=== PATIENT | male | born 1980 | race Caucasian/White ===

== ENCOUNTER 2016-12-02 18:51 | Emergency (ER) | payer MEDICAID, SELFPAY | END 2016-12-02 20:56 | disposition left against medical advice (07) | LOC: M ED 18:51 | DX: Z53.29 Procedure and treatment not carried out because of patient's decision for other reasons (principal) ==

== ENCOUNTER 2016-12-03 11:01 | Emergency (ER) | payer MEDICAID, SELFPAY ==
--- NOTE | 2016-12-03 15:56 | EDDOCDS ---
Nurse's Notes [facility] Name: Kirill Lester Age: 36 yrs Sex: Male : 1980 Arrival Date: 12/03/2016 Time: 11:01 Bed [facility] Private MD: Diagnosis: Other stimulant abuse with intoxication delirium Presentation: 12/03 11:22 Presenting complaint: law enforcement states they have been dealing with pt all night ttb -- pt using meth and causing disturbances. No SI/HI. Mental Health Triage Level: Level 2: The patient was brought to the ED for evaluation because of a legal pickup order. Adult Sepsis Screening: Patient has new or worsening altered mentation (1 point). Patient's respiratory rate is less than 22. Systolic blood pressure is greater than 100. Patient has a qSOFA score of 1- Negative Sepsis Screen. Suicide/Homicide risk assessment- The patient reports that he/she has a recent or current history of substance abuse. Status: Patient is not a environmental services lead or dependent. Transition of care: patient was not received from another setting of care. 11:22 Acuity: ASHWIN Level 3 ttb 11:22 Method Of Arrival: Police Car ttb Triage Assessment: 11:27 General: Appears in no apparent distress, comfortable, well nourished, Behavior is ttb anxious, cooperative, pleasant, restless. Pain: Denies pain. HIV screening NA for this visit Offered previously. Neurological: Level of Consciousness is awake, alert, Oriented to person, place, time, Moves all extremities. Gait is steady, Speech is normal, Facial symmetry appears normal. Cardiovascular: Heart tones S1 S2 present Chest pain is denied. Respiratory: Airway is patent Respiratory effort is even, unlabored, Breath sounds are clear bilaterally. Denies cough, shortness of breath. GI: Bowel sounds present X 4 quads. Reports has not eaten/drank in approx 2 days Denies nausea, vomiting, pain. Derm: Skin is normal. Injury Description: No known injury. Historical: - Allergies: PENICILLINS; dymtap; - Home Meds: 1. none - PMHx: substance abuse; - PSHx: none; - Social history: Smoking status: Patient uses tobacco products, heavy tobacco smoker. Patient uses street drugs, methamphetamine , Patient/guardian denies using alcohol, No barriers to communication noted, The patient speaks fluent Syriac, Speaks appropriately for age. - Family history: Not pertinent. - : The pt / caregiver states he / she is not on anticoagulants. Home medication list is obtained from the patient. - Exposure Risk Screening:: None identified. Screenin:29 Screening information is obtained from the patient. Fall risk: No risks identified. ttb Assistance ADL's: requires no assistance with activities of daily living. Abuse/DV Screen: The patient / caregiver reports he/she is: not in a situation that causes fear, pain or injury. Nutritional screening: No deficits noted. Advance Directives: Currently, there is no health care proxy. home support is adequate. Assessment: 11:29 General: see triage assessment. Pt brushed teeth, states he is not hungry but has not ttb eaten in 2 days. States he has been using meth for approx 20 years and this binge is not out of his norm. 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 . 12:15 Reassessment: Patient appears in no apparent distress at this time. pt sleeping. NAD ttb noted. Resps easy at 18. Will monitor.. 12:15 Neurological: asleep. Respiratory: Airway is patent Respiratory effort is even, ttb unlabored. 13:15 Reassessment: Patient appears in no apparent distress at this time. pt sleeping. Resps ttb easy at 18. Security monitoring. . 14:15 Reassessment: Patient appears in no apparent distress at this time. pt continues to ttb sleep on stretcher. Resps easy at 18. Security monitoring.. 15:15 Adult Sepsis Screening: The patient does not have new or worsening altered mentation. ttb Patient's respiratory rate is less than 22. Systolic blood pressure is greater than 100. Patient has a qSOFA score of 0- Negative Sepsis Screen. General: Appears in no apparent distress, comfortable, Behavior is appropriate for age, cooperative, pleasant, quiet. Pain: Denies pain. Neurological: Level of Consciousness is awake, alert. Cardiovascular: Chest pain is denied. Respiratory: Airway is patent Respiratory effort is even, unlabored, Denies cough, shortness of breath. GI: Reports tolerance of food, tolerance of fluids, Denies nausea, vomiting, pain. 15:15 Derm: Skin is normal. ttb 15:40 Reassessment: Patient appears in no apparent distress at this time. Patient denies pain ttb at this time. Patient states feeling better. Patient states symptoms have improved. pt states he is ready for DC after speaking with SW. Sister to give him ride home. Denies need for referral list stating he has tried rehab before.... states he will attempt to refrain from drug use. . 15:40 General: Appears in no apparent distress, comfortable, Behavior is appropriate for age, ttb cooperative, pleasant. Pain: Denies pain. Neurological: Level of Consciousness is awake, alert. Cardiovascular: Chest pain is denied. Respiratory: No deficits noted. Airway is patent Respiratory effort is even, unlabored. GI: Denies nausea, vomiting, pain. Derm: Skin is normal. Mental Health Eval: 11:44 Mental health consult is initiated at 11:44. Status: The patient is not a ca environmental services lead or dependent. [facility] Behavioral Health: The patient is not an established patient of [facility] Behavioral Health. Referral Information: Evaluation referral is generated by a police agency: [employer] on . The patient was referred for evaluation because Pt called 911 stating people were chasing him around with guns. Also told police someone had been killed and told police where to find the body. Police confirm they found no body. Police spoke with pt's family, were informed family believes pt made suicidal threat. Pt denies this to the police . Subjective: The patients chief complaint is Pt states he has not slept in 3 days due to abusing methamphetamine. Pt denies any SI or HI, states "I never said that." . Vital Signs: 11:27 BP 142 / 87; Pulse 71; Resp 20; Temp 97.4; Pulse Ox 100% on R/A; Weight 84.82 kg; ttb Height 5 ft. 9 in. (175.26 cm); Pain 0/10; 15:18 BP 119 / 64; Pulse 74; Resp 18; Temp 96.4; Pulse Ox 100% on R/A; Pain 0/10; ttb 11:27 Body Mass Index 27.61 (84.82 kg, 175.26 cm) ttb Vitals: 11:27 Log In time N/A- police car arrival. ttb ED Course: 11:04 Patient visited by Nicole Roberson. 5 11:04 Patient moved to [facility] 11:12 Patient moved to [facility] pjf 11:26 Triage Initiated ttb 11:29 The patient / caregiver is instructed regarding the plan of care and ED course. Patient ttb has correct armband on for positive identification. Placed in gown. Placed in psych safe attire. Security observing. in [facility] with observation. Property inventory done, secured in belongings bag- secure belongings bag, Placed U locker . 11:31 Patient visited by Scarlett Du RN. ttb 11:34 Pt greeted and oriented to ED. Patient advised of names of staff involved in care, pjf location of call lindsay, wait times and NPO status. Accompanied by Law Enforcement, wpd (9.41), Bed in low position. Call light in reach. Side rails up X 1. Door closed. Noise minimized. Visitors limited. Report received from rn - gregg. triage level #2, ams, cooperative \\T\\ this time. Psych Safety Check: Location: Psych Room. 11:41 Patient visited by Greyson Redmond Security Aide. pjf 11:45 Patient visited by Greyson Redmond Security Aide. pjf 11:58 Patient visited by Greyson Redmond Security Aide. pjf 12:18 Patient visited by Greyson Redmond Security Aide. pjf 12:25 Patient visited by Scarlett Du RN. ttb 12:30 Giselle Boyce FNP is PHCP. le 12:49 Patient visited by Giselle Boyce FNP. le 12:49 Patient visited by Giselle Boyce FNP. le 12:49 Patient visited by Greyson Redmond Security Aide. pjf 13:15 Psych Safety Check: Location: Psych Room. Visual Assessment: Cooperative. pjf 13:22 Patient visited by Greyson Redmond Security Aide. pjf 13:42 Patient visited by Greyson Redmond Security Aidkaylen. pjf 13:56 Patient visited by Greyson Redmond Security Aide. pjf 14:11 Patient visited by Greyson Redmond Security Aidkaylen. pjf 14:36 Patient visited by Greyson Redmond Security Aide. pjf 14:41 Patient visited by Scarlett Du RN. ttb 14:46 Patient visited by Greyson Redmond Security Aide. pjf 15:01 Patient visited by Greyson Redmond Security Aide. pjf 15:19 Patient visited by Scarlett Du RN. ttb 15:31 Patient visited by Greyson Redmond Security Aide. pjf 15:38 [facility] is Referral Physician. le 15:40 No IV's were initiated during this patient's visit. No procedures done that require ttb assistance. Order Results: There are currently no results for this order. Outcome: 15:38 Discharge ordered by Provider. le 15:40 Discharge Assessment: Patient awake, alert and oriented x 3. No cognitive and/or ttb functional deficits noted. Patient verbalized understanding of disposition instructions. Patient awake and alert. patient administered narcotics - no. The following High Risk Discharge criteria are identified: None. Discharged to home ambulatory, with family. Condition: good Condition: stable Condition: improved. Discharge instructions given to patient, Instructed on discharge instructions, follow up and referral plans. medication usage, safe sex practices, safety practices, refrain from drug use, f/u with rehabilitation center Demonstrated understanding of instructions, medications, refraining from drug use Pt was receptive of discharge instructions/ teaching. No special radiology studies were completed. Property :Personal belongings accompany Pt. 15:55 Patient left the ED. ttb Signatures: Drea Quigley PSA PSA Greyson Whatley Security Aide SecurpjGiselle Sanchez, RAILCAR FOREMAN RAILCAR FOREMAN Scarlett Araiza RN RN ttb Nicole Roberson jp5 MTDD
--- NOTE | 2016-12-03 15:56 | EDDOCDS ---
Physician Documentation [facility] Name: Kirill Lester Age: 36 yrs Sex: Male : 1980 Arrival Date: 12/03/2016 Time: 11:01 Bed [facility] Private MD: Disposition: 12/03/16 15:38 Discharged to Home/Self Care. Impression: Other stimulant abuse with intoxication delirium. - Condition is Stable. - Discharge Instructions: Chemical Dependency, Stimulant Use Disorder-Amphetamines. - Medication Reconciliation, Local Pharmacy Hours form. - Follow up: [facility]; When: Call to arrange an appointment; Reason: Recheck today's complaints, To establish care. - Problem is an acute exacerbation. - Symptoms have improved. - Notes: You need to refrain from using illegal substances. Return to the ED for any other concerns Historical: - Allergies: PENICILLINS; dymtap; - Home Meds: 1. none - PMHx: substance abuse; - PSHx: none; - Social history: Smoking status: Patient uses tobacco products, heavy tobacco smoker. Patient uses street drugs, methamphetamine , Patient/guardian denies using alcohol, No barriers to communication noted, The patient speaks fluent Bengali, Speaks appropriately for age. - Family history: Not pertinent. - : The pt / caregiver states he / she is not on anticoagulants. Home medication list is obtained from the patient. - Exposure Risk Screening:: None identified. Vital Signs: 12/03 11:27 BP 142 / 87; Pulse 71; Resp 20; Temp 97.4; Pulse Ox 100% on R/A; Weight 84.82 kg / 187 ttb lbs; Height 5 ft. 9 in. (175.26 cm); Pain 0/10; 15:18 BP 119 / 64; Pulse 74; Resp 18; Temp 96.4; Pulse Ox 100% on R/A; Pain 0/10; ttb 11:27 Body Mass Index 27.61 (84.82 kg, 175.26 cm) ttb MDM: 12:25 REGULAR DIET PLASTIC PIRES+DIET ordered. EDMS Signatures: Dispatcher [employer] EDMS Giselle Boyce, Scarlett Mcmahon, CHAYO RN ttb MTDD
--- NOTE | 2016-12-05 16:56 | EDDOCDS ---
Physician Documentation [facility] Name: Kirill Lester Age: 36 yrs Sex: Male : 1980 Arrival Date: 12/03/2016 Time: 11:01 Bed [facility] Private MD: Disposition: 12/03/16 15:38 Discharged to Home/Self Care. Impression: Other stimulant abuse with intoxication delirium. - Condition is Stable. - Discharge Instructions: Chemical Dependency, Stimulant Use Disorder-Amphetamines. - Medication Reconciliation, Local Pharmacy Hours form. - Follow up: [facility]; When: Call to arrange an appointment; Reason: Recheck today's complaints, To establish care. - Problem is an acute exacerbation. - Symptoms have improved. - Notes: You need to refrain from using illegal substances. Return to the ED for any other concerns Historical: - Allergies: PENICILLINS; dymtap; - Home Meds: 1. none - PMHx: substance abuse; - PSHx: none; - Social history: Smoking status: Patient uses tobacco products, heavy tobacco smoker. Patient uses street drugs, methamphetamine , Patient/guardian denies using alcohol, No barriers to communication noted, The patient speaks fluent Luxembourgish, Speaks appropriately for age. - Family history: Not pertinent. - : The pt / caregiver states he / she is not on anticoagulants. Home medication list is obtained from the patient. - Exposure Risk Screening:: None identified. Vital Signs: 12/03 11:27 BP 142 / 87; Pulse 71; Resp 20; Temp 97.4; Pulse Ox 100% on R/A; Weight 84.82 kg / 187 ttb lbs; Height 5 ft. 9 in. (175.26 cm); Pain 0/10; 15:18 BP 119 / 64; Pulse 74; Resp 18; Temp 96.4; Pulse Ox 100% on R/A; Pain 0/10; ttb 11:27 Body Mass Index 27.61 (84.82 kg, 175.26 cm) ttb MDM: 12:25 REGULAR DIET PLASTIC PIRES+DIET ordered. EDMS 15:59 [facility] Payment Agreement was scanned into [employer] and attached to record. jp5 15:59 Financial registration complete. jp5 22:34 T-Sheet-- Draft Copy was scanned into [employer] and attached to record. klr Signatures: Dispatcher [employer] Giselle Keating, SETTLEMENT CLERK SETTLEMENT CLERK Scarlett Araiza, RN RN Nicole Yanez jp5 Brittanie Matthew The chart was reviewed and I authenticate all verbal orders and agree with the evaluation and treatment provided.Attachments: 15:59 [facility] Payment Agreement jp5 22:34 T-Sheet-- Draft Copy klr Chart Complete MTDD
--- NOTE | 2016-12-05 16:56 | EDDOCDS ---
Physician Documentation [facility] Name: Kirill Lester Age: 36 yrs Sex: Male : 1980 Arrival Date: 12/03/2016 Time: 11:01 Bed [facility] Private MD: Disposition: 12/03/16 15:38 Discharged to Home/Self Care. Impression: Other stimulant abuse with intoxication delirium. - Condition is Stable. - Discharge Instructions: Chemical Dependency, Stimulant Use Disorder-Amphetamines. - Medication Reconciliation, Local Pharmacy Hours form. - Follow up: [facility]; When: Call to arrange an appointment; Reason: Recheck today's complaints, To establish care. - Problem is an acute exacerbation. - Symptoms have improved. - Notes: You need to refrain from using illegal substances. Return to the ED for any other concerns Historical: - Allergies: PENICILLINS; dymtap; - Home Meds: 1. none - PMHx: substance abuse; - PSHx: none; - Social history: Smoking status: Patient uses tobacco products, heavy tobacco smoker. Patient uses street drugs, methamphetamine , Patient/guardian denies using alcohol, No barriers to communication noted, The patient speaks fluent Amharic, Speaks appropriately for age. - Family history: Not pertinent. - : The pt / caregiver states he / she is not on anticoagulants. Home medication list is obtained from the patient. - Exposure Risk Screening:: None identified. Vital Signs: 12/03 11:27 BP 142 / 87; Pulse 71; Resp 20; Temp 97.4; Pulse Ox 100% on R/A; Weight 84.82 kg / 187 ttb lbs; Height 5 ft. 9 in. (175.26 cm); Pain 0/10; 15:18 BP 119 / 64; Pulse 74; Resp 18; Temp 96.4; Pulse Ox 100% on R/A; Pain 0/10; ttb 11:27 Body Mass Index 27.61 (84.82 kg, 175.26 cm) ttb MDM: 12:25 REGULAR DIET PLASTIC PIRES+DIET ordered. EDMS 15:59 [facility] Payment Agreement was scanned into [employer] and attached to record. jp5 15:59 Financial registration complete. jp5 22:34 T-Sheet-- Draft Copy was scanned into [employer] and attached to record. klr Signatures: Dispatcher [employer] Giselle Keating, INSTRUMENT ADJUSTER INSTRUMENT ADJUSTER Scarlett Araiza, RN RN Nicole Yanez jp5 Brittanie Matthew The chart was reviewed and I authenticate all verbal orders and agree with the evaluation and treatment provided.Attachments: 15:59 [facility] Payment Agreement jp5 22:34 T-Sheet-- Draft Copy klr Chart Complete MTDD
--- NOTE | 2016-12-05 16:56 | EDDOCDS ---
Nurse's Notes [facility] Name: Kirill Lester Age: 36 yrs Sex: Male : 1980 Arrival Date: 12/03/2016 Time: 11:01 Bed [facility] Private MD: Diagnosis: Other stimulant abuse with intoxication delirium Presentation: 12/03 11:22 Presenting complaint: law enforcement states they have been dealing with pt all night ttb -- pt using meth and causing disturbances. No SI/HI. Mental Health Triage Level: Level 2: The patient was brought to the ED for evaluation because of a legal pickup order. Adult Sepsis Screening: Patient has new or worsening altered mentation (1 point). Patient's respiratory rate is less than 22. Systolic blood pressure is greater than 100. Patient has a qSOFA score of 1- Negative Sepsis Screen. Suicide/Homicide risk assessment- The patient reports that he/she has a recent or current history of substance abuse. Status: Patient is not a customer sales service manager or dependent. Transition of care: patient was not received from another setting of care. 11:22 Acuity: ASHWIN Level 3 ttb 11:22 Method Of Arrival: Police Car ttb Triage Assessment: 11:27 General: Appears in no apparent distress, comfortable, well nourished, Behavior is ttb anxious, cooperative, pleasant, restless. Pain: Denies pain. HIV screening NA for this visit Offered previously. Neurological: Level of Consciousness is awake, alert, Oriented to person, place, time, Moves all extremities. Gait is steady, Speech is normal, Facial symmetry appears normal. Cardiovascular: Heart tones S1 S2 present Chest pain is denied. Respiratory: Airway is patent Respiratory effort is even, unlabored, Breath sounds are clear bilaterally. Denies cough, shortness of breath. GI: Bowel sounds present X 4 quads. Reports has not eaten/drank in approx 2 days Denies nausea, vomiting, pain. Derm: Skin is normal. Injury Description: No known injury. Historical: - Allergies: PENICILLINS; dymtap; - Home Meds: 1. none - PMHx: substance abuse; - PSHx: none; - Social history: Smoking status: Patient uses tobacco products, heavy tobacco smoker. Patient uses street drugs, methamphetamine , Patient/guardian denies using alcohol, No barriers to communication noted, The patient speaks fluent Setswana, Speaks appropriately for age. - Family history: Not pertinent. - : The pt / caregiver states he / she is not on anticoagulants. Home medication list is obtained from the patient. - Exposure Risk Screening:: None identified. Screenin:29 Screening information is obtained from the patient. Fall risk: No risks identified. ttb Assistance ADL's: requires no assistance with activities of daily living. Abuse/DV Screen: The patient / caregiver reports he/she is: not in a situation that causes fear, pain or injury. Nutritional screening: No deficits noted. Advance Directives: Currently, there is no health care proxy. home support is adequate. Assessment: 11:29 General: see triage assessment. Pt brushed teeth, states he is not hungry but has not ttb eaten in 2 days. States he has been using meth for approx 20 years and this binge is not out of his norm. 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 . 12:15 Reassessment: Patient appears in no apparent distress at this time. pt sleeping. NAD ttb noted. Resps easy at 18. Will monitor.. 12:15 Neurological: asleep. Respiratory: Airway is patent Respiratory effort is even, ttb unlabored. 13:15 Reassessment: Patient appears in no apparent distress at this time. pt sleeping. Resps ttb easy at 18. Security monitoring. . 14:15 Reassessment: Patient appears in no apparent distress at this time. pt continues to ttb sleep on stretcher. Resps easy at 18. Security monitoring.. 15:15 Adult Sepsis Screening: The patient does not have new or worsening altered mentation. ttb Patient's respiratory rate is less than 22. Systolic blood pressure is greater than 100. Patient has a qSOFA score of 0- Negative Sepsis Screen. General: Appears in no apparent distress, comfortable, Behavior is appropriate for age, cooperative, pleasant, quiet. Pain: Denies pain. Neurological: Level of Consciousness is awake, alert. Cardiovascular: Chest pain is denied. Respiratory: Airway is patent Respiratory effort is even, unlabored, Denies cough, shortness of breath. GI: Reports tolerance of food, tolerance of fluids, Denies nausea, vomiting, pain. 15:15 Derm: Skin is normal. ttb 15:40 Reassessment: Patient appears in no apparent distress at this time. Patient denies pain ttb at this time. Patient states feeling better. Patient states symptoms have improved. pt states he is ready for DC after speaking with SW. Sister to give him ride home. Denies need for referral list stating he has tried rehab before.... states he will attempt to refrain from drug use. . 15:40 General: Appears in no apparent distress, comfortable, Behavior is appropriate for age, ttb cooperative, pleasant. Pain: Denies pain. Neurological: Level of Consciousness is awake, alert. Cardiovascular: Chest pain is denied. Respiratory: No deficits noted. Airway is patent Respiratory effort is even, unlabored. GI: Denies nausea, vomiting, pain. Derm: Skin is normal. Mental Health Eval: 11:44 Mental health consult is initiated at 11:44. Status: The patient is not a ar customer sales service manager or dependent. [facility] Behavioral Health: The patient is not an established patient of [facility] Behavioral Health. Referral Information: Evaluation referral is generated by a police agency: [employer] on . The patient was referred for evaluation because Pt called 911 stating people were chasing him around with guns. Also told police someone had been killed and told police where to find the body. Police confirm they found no body. Police spoke with pt's family, were informed family believes pt made suicidal threat. Pt denies this to the police . Subjective: The patients chief complaint is Pt states he has not slept in 3 days due to abusing methamphetamine. Pt denies any SI or HI, states "I never said that." . 15:50 Subjective: Delusions are denied. Patient's mood is appropriate. Hallucinations are ca denied. Pt has a significant hx of methamphetamine abuse and readily acknowledges this. At present time pt feels he does not require rehab. Denies SI or HI. Denies paranoia, continues to say there is a person who does not like him and wants to hurt him and so pt is avoiding him. 16:06 Mental Health history: abusing methamphetamine. Mental Health Admissions: None. Current ca Outpatient Mental Health Services: None. Current living environment is Family / Home Support: Living with sister. 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 Patient presents to Emergency Department with the following symptoms within the past 2 weeks: anxiety, drug abuse. Substance abuse: Patient uses methamphetamines. Mental status exam: Patients appearance is appropriate, malodorous Patient's behavior is cooperative, Speech is normal. Affect is appropriate. Mood is appropriate. Hallucinations are denied. Appetite is normal. Memory is fair. Energy level is normal. Content of thought is normal. Thought process is intact. Cognitive level is oriented to person, place, time and situation Patient's insight is fair. Judgement is fair. Rapport with interviewer is good. Suicidal Ideation is denied. Homicidal ideation is denied. Disposition: Medically cleared for disposition by Giselle Boyce [facility] Psychiatric Consult is deferred per ED physician, Dr Giselle Boyce . DSM-V Differential Diagnosis: Stimulant Use Disorder, Patient uses amphetamines. Narrative: Pt discharged to home with sister. Referred to E clinic for f/u as pt does not have a PCP. Pt declines referrals for drug tx. Pt continues to CFS, is calm and pleasant upon discharge. Vital Signs: 11:27 BP 142 / 87; Pulse 71; Resp 20; Temp 97.4; Pulse Ox 100% on R/A; Weight 84.82 kg; ttb Height 5 ft. 9 in. (175.26 cm); Pain 0/10; 15:18 BP 119 / 64; Pulse 74; Resp 18; Temp 96.4; Pulse Ox 100% on R/A; Pain 0/10; ttb 11:27 Body Mass Index 27.61 (84.82 kg, 175.26 cm) ttb Vitals: 11:27 Log In time N/A- police car arrival. ttb ED Course: 11:04 Patient visited by Nicole Roberson. 5 11:04 Patient moved to [place] [id number] 11:12 Patient moved to [address] 11:26 Triage Initiated ttb 11:29 The patient / caregiver is instructed regarding the plan of care and ED course. Patient ttb has correct armband on for positive identification. Placed in gown. Placed in psych safe attire. Security observing. in [facility] with observation. Property inventory done, secured in belongings bag- secure belongings bag, Placed [facility] locker . 11:31 Patient visited by Scarlett Du RN. ttb 11:34 Pt greeted and oriented to ED. Patient advised of names of staff involved in care, [facility] location of call lindsay, wait times and NPO status. Accompanied by Law Enforcement, wpd (9.41), Bed in low position. Call light in reach. Side rails up X 1. Door closed. Noise minimized. Visitors limited. Report received from rn - gregg. triage level #2, ams, cooperative \\T\\ this time. Psych Safety Check: Location: Psych Room. 11:41 Patient visited by Greyson Redmond Security Aide. pjf 11:45 Patient visited by Greyson Redmond Security Aide. pjf 11:58 Patient visited by Greyson Redmond Security Aide. pjf 12:18 Patient visited by Greyson Redmond Security Aide. pjf 12:25 Patient visited by Scarlett Du RN. ttb 12:30 [facility] le 12:49 Patient visited by Giselle Boyce FNP. le 12:49 Patient visited by Giselle Boyce FNP. le 12:49 Patient visited by Greyson Redmond Security Aide. pjf 13:15 Psych Safety Check: Location: Psych Room. Visual Assessment: Cooperative. pjf 13:22 Patient visited by Greyson Redmond Security Aide. pjf 13:42 Patient visited by Greyson Redmond Security Aide. pjf 13:56 Patient visited by Greyson Redmond Security Aide. pjf 14:11 Patient visited by Greyson Redmond Security Aide. pjf 14:36 Patient visited by Greyson Redmond Security Aide. pjf 14:41 Patient visited by Scarlett Du RN. ttb 14:46 Patient visited by Greyson Redmond Security Aide. pjf 15:01 Patient visited by Greyson Redmond Security Aide. pjf 15:19 Patient visited by Scarlett Du RN. ttb 15:31 Patient visited by Greyson Redmond Security Aide. pjf 15:38 [facility] is Referral Physician. le 15:40 No IV's were initiated during this patient's visit. No procedures done that require ttb assistance. 15:58 Patient name changed from Kirill\\S\\\\S\\Lester\\S\\ to Kirill\\S\\Krunal\\S\\Lester. EDMS 15:59 [facility] Payment Agreement was scanned into [employer] and attached to record. jp5 22:34 T-Sheet-- Draft Copy was scanned into [employer] and attached to record. colton Order Results: There are currently no results for this order. Outcome: 15:38 Discharge ordered by Provider. le 15:40 Discharge Assessment: Patient awake, alert and oriented x 3. No cognitive and/or ttb functional deficits noted. Patient verbalized understanding of disposition instructions. Patient awake and alert. patient administered narcotics - no. The following High Risk Discharge criteria are identified: None. Discharged to home ambulatory, with family. Condition: good Condition: stable Condition: improved. Discharge instructions given to patient, Instructed on discharge instructions, follow up and referral plans. medication usage, safe sex practices, safety practices, refrain from drug use, f/u with rehabilitation center Demonstrated understanding of instructions, medications, refraining from drug use Pt was receptive of discharge instructions/ teaching. No special radiology studies were completed. Property :Personal belongings accompany Pt. 15:55 Patient left the ED. ttb Signatures: Dispatcher [employer] EDMT Drea Quigley, PSA PSA Greyson Whatley, Security Aide Giselle Spain, RESCUE INSTRUCTOR RESCUE INSTRUCTOR Scarlett Araiza, RN RN ttb Nicole Roberson Kathie klr Chart Complete RAFA
== END 2016-12-03 15:55 | disposition home or self-care (01) ==
LOC: M ED 11:01
DX: F60.0 Paranoid personality disorder (principal); F15.10 Other stimulant abuse, uncomplicated; F17.210 Nicotine dependence, cigarettes, uncomplicated; Z88.0 Allergy status to penicillin; Z88.8 Allergy status to other drugs, medicaments and biological substances

== ENCOUNTER 2017-07-18 12:50 | Emergency (ER) | payer MEDICAID, SELFPAY ==
[~2017-07-18] VITALS: Ht 177.8 cm; Wt 94.1 kg
--- NOTE | 2017-07-18 13:48 | REP ---
RIGHT FOOT, FOUR VIEWS: HISTORY: Foreign body. There is no acute fracture or dislocation. The joint spaces are normal in appearance. There is no radiopaque foreign body. IMPRESSION: There is no acute fracture or dislocation. Signed by John Laboy MD 07/18/2017 01:54 P
[2017-07-18] MEDS ORDERED: CIPR-249 PO (14:03)
[2017-07-18] MEDS ORDERED: KEFL500C17 PO (14:03)
[2017-07-18] MEDS ORDERED: CIPROFLOXACIN 500 MG TAB PO ONE (14:15)
[2017-07-18] MEDS ORDERED: CEPHALEXIN 500 MG CAP PO ONE (14:15)
[2017-07-18 14:18] VITALS: BP 121/73
== END 2017-07-18 14:19 | disposition home or self-care (01) ==
LOC: M ED 12:50
DX: L02.611 Cutaneous abscess of right foot (principal)

== ENCOUNTER 2019-01-25 18:33 | Emergency (ER) | payer MEDICAID, SELFPAY ==
[~2019-01-25] VITALS: Ht 177.8 cm; Wt 93.2 kg
[~2019-01-25 18:33] MED LIST: CIPR-249 PO; KEFL500C17 PO
[2019-01-25] MEDS ORDERED: PROPARACAINE 0.5% OPHTH SOL 15ML OU ONE (19:15)
[2019-01-25] MEDS ORDERED: FLUORESCEIN OPHTH 1 MG STRIP OU ONE (19:15)
[2019-01-25] MEDS ORDERED: MORPHINE 4 MG/ML 1ML VIAL/SYRINGE (J2270) IV ONE (19:15)
[2019-01-25] MEDS ORDERED: ADACEL/BOOSTRIX VACCINE (DIPHTH/PERTUSS/ACELL/TETANUS)0.5ML SYR (90715) IM ONE (19:15)
[2019-01-25] MEDS ORDERED: BACITRACIN OINT 30GM TOP ONE (19:30)
[2019-01-25] MEDS ORDERED: IBUPROFEN 600 MG TAB PO ONE (19:45)
[2019-01-25] MEDS ORDERED: ACETAMINOPHEN 325 MG TAB PO ONE (19:45)
[2019-01-25 21:37] VITALS: BP 141/78
== END 2019-01-25 21:52 | disposition short-term general hospital (02) ==
LOC: M ED 18:33
DX: T26.10XA Burn of cornea and conjunctival sac, unspecified eye, initial encounter (principal); X08.8XXA Exposure to other specified smoke, fire and flames, initial encounter; Y92.410 Unspecified street and highway as the place of occurrence of the external cause; F17.200 Nicotine dependence, unspecified, uncomplicated

== ENCOUNTER 2019-02-02 17:57 | Emergency (ER) | payer SELFPAY ==
[~2019-02-02] VITALS: Ht 177.8 cm; Wt 93.2 kg
[2019-02-02] MEDS ORDERED: TETRACAINE 0.5% OPHTH SOLN 4ML OS ONE (19:15)
[2019-02-02 19:21] VITALS: BP 110/71
== END 2019-02-02 19:27 | disposition home or self-care (01) ==
LOC: M ED 17:57
DX: T15.92XA Foreign body on external eye, part unspecified, left eye, initial encounter (principal); X58.XXXA Exposure to other specified factors, initial encounter; Y92.89 Other specified places as the place of occurrence of the external cause; F17.210 Nicotine dependence, cigarettes, uncomplicated

== ENCOUNTER 2019-09-13 18:44 | Emergency (ER) | payer SELFPAY ==
[~2019-09-13] VITALS: Ht 175.3 cm; Wt 88.5 kg
[2019-09-13 19:30] LABS: BASO % 0.4 % (0.0-1.0); EOS # 0.2 10^3/uL (0.0-0.5); EOS % 4.1 % (0.0-3.0); HEMATOCRIT 41.9 % (42.0-52.0); HEMOGLOBIN 14.2 g/dl (13.5-17.5); LYMPH # 1.4 10^3/uL (1.5-5.0); LYMPH % 25.1 % (24.0-44.0); MEAN CORPUSCULAR HEMOGLOBIN 30.7 pg (27.0-33.0); MEAN CORPUSCULAR HGB CONC 33.9 g/dl (32.0-36.5); MEAN CORPUSCULAR VOLUME 90.5 fl (80.0-96.0); MONO # 0.4 10^3/uL (0.0-0.8); MONO % 7.3 % (0.0-5.0); NEUTROPHILS # 3.4 10^3/uL (1.5-8.5); NEUTROPHILS % 62.9 % (36.0-66.0); PLATELET COUNT, AUTOMATED 195 10^3/uL (150-450); RED BLOOD COUNT 4.63 10^6/uL (4.30-6.10); WHITE BLOOD COUNT 5.4 10^3/uL (4.0-10.0)
[2019-09-13] MEDS ORDERED: KETOROLAC 30 MG/ML VIAL (J1885) IV ONE (19:30)
[2019-09-13] MEDS ORDERED: NS 1,000 ML IV ONE (19:30)
[2019-09-13 20:05] LABS: ALBUMIN 3.7 GM/DL (3.2-5.2); ALT/SGPT 29 U/L (12-78); BILIRUBIN,DIRECT < 0.1 MG/DL (0.0-0.2); BILIRUBIN,TOTAL 0.3 MG/DL (0.2-1.0); LIPASE 100 U/L (73-393); TOTAL PROTEIN 6.9 GM/DL (6.4-8.2)
--- NOTE | 2019-09-13 21:10 | REPVR ---
PROCEDURE INFORMATION: Exam: CT Abdomen And Pelvis Without Contrast Exam date and time: 09/13/2019 7:39 PM Clinical history: 39 years old, male; Abdominal pain; Flank; Left; Additional info: Left flank pain radiating to left groin/testicle TECHNIQUE: Imaging protocol: Computed tomography of the abdomen and pelvis without contrast. Radiation optimization: All CT scans at this facility use at least one of these dose optimization techniques: automated exposure control; mA and/or kV adjustment per patient size (includes targeted exams where dose is matched to clinical indication); or iterative reconstruction. COMPARISON: No relevant prior studies available. FINDINGS: Liver: Normal. No mass. Gallbladder and bile ducts: Normal. No calcified stones. No ductal dilation. Pancreas: Normal. No ductal dilation. Spleen: Normal. No splenomegaly. Adrenals: Normal. No mass. Kidneys and ureters: Normal. No hydronephrosis. Stomach and bowel: Unremarkable. No obstruction. No mucosal thickening. Appendix: No evidence of appendicitis. Intraperitoneal space: Unremarkable. No free air. No significant fluid collection. Vasculature: Unremarkable. No abdominal aortic aneurysm. Lymph nodes: Unremarkable. No enlarged lymph nodes. Bladder: Unremarkable as visualized. Reproductive: Unremarkable as visualized. Bones/joints: Unremarkable. No acute fracture. Soft tissues: Unremarkable. IMPRESSION: No acute findings. Electronically signed by: Neto Bains On 09/13/2019 21:10:13 PM
[2019-09-13 21:24] VITALS: BP 122/71
[2019-09-13] MEDS ORDERED: CYCLOBENZAPRINE 10 MG TAB PO ONE (21:30)
--- NOTE | 2019-09-13 22:24 | REPVR ---
PROCEDURE INFORMATION: Exam: CT Lumbar Spine Without Contrast Exam date and time: 09/13/2019 10:08 PM Clinical history: 39 years old, male; Low back pain; Additional info: Back pain radiatind down L leg TECHNIQUE: Imaging protocol: Computed tomography images of the lumbar spine without contrast. Radiation optimization: All CT scans at this facility use at least one of these dose optimization techniques: automated exposure control; mA and/or kV adjustment per patient size (includes targeted exams where dose is matched to clinical indication); or iterative reconstruction. COMPARISON: No relevant prior studies available. FINDINGS: Vertebrae: No acute fracture. Normal alignment. Discs/Spinal canal/Neural foramina: No spinal stenosis. No neural foraminal narrowing. Soft tissues: Unremarkable. IMPRESSION: No acute findings. Unremarkable lumbar spine CT. Electronically signed by: Neto Bains On 09/13/2019 22:24:15 PM
== END 2019-09-13 22:42 | disposition home or self-care (01) ==
LOC: M ED 18:44
DX: S29.012A Strain of muscle and tendon of back wall of thorax, initial encounter (principal); X58.XXXA Exposure to other specified factors, initial encounter; Y92.89 Other specified places as the place of occurrence of the external cause; Z88.0 Allergy status to penicillin; Z87.891 Personal history of nicotine dependence
CPT/HCPCS: 72131; 74176; 80047; 80076; 81001; 83690; 85025; 87086; 96374; 99284; J1885

== ENCOUNTER 2020-07-31 22:23 | Emergency (ER) | payer MEDICAID, SELFPAY ==
[~2020-07-31] VITALS: Ht 177.8 cm; Wt 95.5 kg
[2020-07-31 23:22] LABS: HEMATOCRIT 41.5 % (42.0-52.0); MEAN CORPUSCULAR HEMOGLOBIN 29.9 pg (27.0-33.0); MEAN CORPUSCULAR HGB CONC 33.7 g/dl (32.0-36.5); MEAN CORPUSCULAR VOLUME 88.7 fl (80.0-96.0); PLATELET COUNT, AUTOMATED 210 10^3/uL (150-450); RED BLOOD COUNT 4.68 10^6/uL (4.30-6.10); WHITE BLOOD COUNT 6.2 10^3/uL (4.0-10.0)
[2020-08-01 00:04] LABS: ACETAMINOPHEN LEVEL < 2.0 UG/ML (10.0-30.0); ALBUMIN 3.9 GM/DL (3.2-5.2); ALT/SGPT 33 U/L (12-78); AMPHETAMINES LEVEL URINE POSITIVE (NEGATIVE); BARBITURATES URINE NEGATIVE (NEGATIVE); BENZODIAZEPINES URINE NEGATIVE (NEGATIVE); BILIRUBIN,DIRECT 0.1 MG/DL (0.0-0.2); BILIRUBIN,TOTAL 0.4 MG/DL (0.2-1.0); BLOOD UREA NITROGEN 21 MG/DL (7-18); CALCIUM LEVEL 9.3 MG/DL (8.5-10.1); CANNABINOIDS URINE NEGATIVE (NEGATIVE); CARBON DIOXIDE LEVEL 32 MEQ/L (21-32); CHLORIDE LEVEL 105 MEQ/L (98-107); COCAINE METABOLITE URINE NEGATIVE (NEGATIVE); CREATININE FOR GFR 1.03 MG/DL (0.70-1.30); ETHYL ALCOHOL (ETHANOL) < 0.003 % (0.000-0.010); GLOMERULAR FILTRATION RATE > 60.0 (>60); GLUCOSE, FASTING 73 MG/DL (70-100); METHADONE URINE NEGATIVE (NEGATIVE); OPIATES URINE NEGATIVE (NEGATIVE); PHENCYCLIDINE URINE NEGATIVE (NEGATIVE); POTASSIUM SERUM 4.8 MEQ/L (3.5-5.1); SALICYLATE LEVEL < 1.7 MG/DL (5.0-30.0); SODIUM LEVEL 139 MEQ/L (136-145); TOTAL PROTEIN 7.3 GM/DL (6.4-8.2)
[2020-08-01] MEDS ORDERED: LORazepam 2 MG TAB PO STA (01:40)
[2020-08-01 08:44] VITALS: BP 132/82
--- NOTE | 2020-08-04 21:39 | ECGEPIP ---
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
== END 2020-08-01 08:47 | disposition short-term general hospital (02) ==
LOC: M ED 22:23
DX: R45.850 Homicidal ideations (principal); F15.229 Other stimulant dependence with intoxication, unspecified; F17.210 Nicotine dependence, cigarettes, uncomplicated; Z11.59 Encounter for screening for other viral diseases; Z88.0 Allergy status to penicillin
CPT/HCPCS: 36415; 80048; 80076; 80307; 81001; 84443; 85027; 93005; 99285; G0480; U0002

== ENCOUNTER → 2021-03-15 | Outpatient (REF) | payer OTHER | LOC: M LAB REF 11:18 | PROVIDERS: ATTEND Surgery | DX: U07.1 COVID-19 (principal) ==

== ENCOUNTER 2021-12-13 09:42 | Inpatient (IN) | payer OTHER ==
[~2021-12-13] VITALS: Ht 177.8 cm; Wt 88.6 kg
[2021-12-13] MEDS ORDERED: RISP-8 PO (09:58)
[2021-12-13 10:47] LABS: HEMATOCRIT 46.9 % (42.0-52.0); HEMOGLOBIN 15.6 g/dl (13.5-17.5); MEAN CORPUSCULAR HEMOGLOBIN 28.7 pg (27.0-33.0); MEAN CORPUSCULAR HGB CONC 33.3 g/dl (32.0-36.5); MEAN CORPUSCULAR VOLUME 86.2 fl (80.0-96.0); PLATELET COUNT, AUTOMATED 207 10^3/uL (150-450); RED BLOOD COUNT 5.44 10^6/uL (4.30-6.10); WHITE BLOOD COUNT 4.8 10^3/uL (4.0-10.0)
[2021-12-13] MEDS ORDERED: MULT-4 PO (11:06)
[2021-12-13] MEDS ORDERED: HOME MED LIST COMPLETE! XX SCH (11:10)
[2021-12-13 11:23] LABS: ACETAMINOPHEN LEVEL < 2.0 UG/ML (10.0-30.0); ALT/SGPT 30 U/L (12-78); BILIRUBIN,DIRECT 0.2 MG/DL (0.0-0.2); BILIRUBIN,TOTAL 0.6 MG/DL (0.2-1.0); BLOOD UREA NITROGEN 31 MG/DL (7-18); CALCIUM LEVEL 9.4 MG/DL (8.5-10.1); CARBON DIOXIDE LEVEL 29 MEQ/L (21-32); CHLORIDE LEVEL 109 MEQ/L (98-107); CREATININE FOR GFR 0.93 MG/DL (0.70-1.30); ETHYL ALCOHOL (ETHANOL) < 0.003 % (0.000-0.010); GLOMERULAR FILTRATION RATE > 60.0 (>60); GLUCOSE, FASTING 79 MG/DL (70-100); POTASSIUM SERUM 4.9 MEQ/L (3.5-5.1); SALICYLATE LEVEL < 1.7 MG/DL (5.0-30.0); SODIUM LEVEL 142 MEQ/L (136-145); TOTAL PROTEIN 7.4 GM/DL (6.4-8.2)
[2021-12-13 13:43] LABS: AMPHETAMINES LEVEL URINE POSITIVE (NEGATIVE); BARBITURATES URINE NEGATIVE (NEGATIVE); BENZODIAZEPINES URINE NEGATIVE (NEGATIVE); CANNABINOIDS URINE POSITIVE (NEGATIVE); COCAINE METABOLITE URINE NEGATIVE (NEGATIVE); METHADONE URINE NEGATIVE (NEGATIVE); OPIATES URINE NEGATIVE (NEGATIVE); PHENCYCLIDINE URINE NEGATIVE (NEGATIVE)
[2021-12-13] MEDS ORDERED: IBUPROFEN 400MG TAB PO PRN (15:00)
[2021-12-13] MEDS ORDERED: MAALOX 30 ML SUSP *UDC PO PRN (15:00)
[2021-12-13] MEDS ORDERED: MOM 30ML SUSPENSION UDC PO PRN (15:00)
[2021-12-13] MEDS: NICOTINE 21MG/24HR 1 EA TRANSDERMAL TD SCH (18:07)
[2021-12-13 19:05] VITALS: BP 163/88
[2021-12-13] MEDS: risperiDONE 1 MG TAB PO SCH (20:50)
[2021-12-13] MEDS: traZODone 50 MG TAB PO PRN (20:50)
[2021-12-14 06:26] VITALS: BP 122/75
[2021-12-14] MEDS: NICOTINE 21MG/24HR 1 EA TRANSDERMAL TD SCH (09:00)
[2021-12-14] MEDS: risperiDONE 1 MG TAB PO SCH (09:15)
[2021-12-14 17:38] VITALS: BP 108/71
[2021-12-14] MEDS: OLANZapine 5 MG TAB PO SCH (20:44)
[2021-12-14] MEDS: traZODone 50 MG TAB PO PRN (20:44)
[2021-12-15 06:38] VITALS: BP 138/55
[2021-12-15] MEDS: NICOTINE 21MG/24HR 1 EA TRANSDERMAL TD SCH (09:00)
[2021-12-15] MEDS ORDERED: NICO21PAT TD (11:25)
[2021-12-15] MEDS ORDERED: OLAN1TAB16 PO (11:25)
[2021-12-15] MEDS ORDERED: TRAZ-252 PO (11:25)
[2021-12-15 18:30] VITALS: BP 128/60
[2021-12-15] MEDS: traZODone 50 MG TAB PO PRN (20:48)
[2021-12-15] MEDS: OLANZapine 5 MG TAB PO SCH (20:48)
[2021-12-16 06:25] VITALS: BP 117/58
[2021-12-16 08:00] VITALS: BP 117/58
[2021-12-16] MEDS: NICOTINE 21MG/24HR 1 EA TRANSDERMAL TD SCH (09:00)
== END 2021-12-16 11:06 | disposition home or self-care (01) | DRG 750 ==
LOC: M ED 09:42 → M ED INP 14:58 → M PSY 16:00
PROVIDERS: ADMIT Psychiatry & Neurology Psychiatry; ATTEND Psychiatry & Neurology Psychiatry
DX: F25.0 Schizoaffective disorder, bipolar type (principal); F17.200 Nicotine dependence, unspecified, uncomplicated; F11.90 Opioid use, unspecified, uncomplicated; Z88.0 Allergy status to penicillin

== ENCOUNTER 2022-07-20 10:14 | Inpatient (IN) | payer OTHER ==
[~2022-07-20] VITALS: Ht 177.8 cm; Wt 97.1 kg
[~2022-07-20 10:14] MED LIST changes: +MULT-4 PO; +NICO21PAT TD; +OLAN1TAB16 PO; +RISP-8 PO; +TRAZ-252 PO
[2022-07-20] MEDS ORDERED: NS 1,000 ML IV ONE ×4 (10:20→14:00)
[2022-07-20] MEDS ORDERED: diphenhydrAMINE 50MG/ML VIAL (J1200) IM ONE (10:25)
[2022-07-20] MEDS ORDERED: HALOPERIDOL 5MG/ML VIAL (J1630 PER 1) IM ONE (10:25)
[2022-07-20] MEDS ORDERED: MIDAZOLAM INJ 2MG/2ML VIAL (J2250 PER 1MG) IM ONE (10:25)
[2022-07-20] MEDS ORDERED: MIDAZOLAM INJ 2MG/2ML VIAL (J2250 PER 1MG) As Ordered ONE (10:26)
[2022-07-20] MEDS ORDERED: diphenhydrAMINE 50MG/ML VIAL (J1200) As Ordered ONE (10:26)
[2022-07-20] MEDS ORDERED: HALOPERIDOL 5MG/ML VIAL (J1630 PER 1) As Ordered ONE (10:26)
[2022-07-20 11:05] LABS: BASO % 0.3 % (0.0-1.0); EOS # 0.2 10^3/uL (0.0-0.5); EOS % 3.6 % (0.0-3.0); HEMATOCRIT 40.6 % (42.0-52.0); HEMOGLOBIN 13.7 g/dl (13.5-17.5); LYMPH # 1.6 10^3/uL (1.5-5.0); LYMPH % 26.7 % (24.0-44.0); MEAN CORPUSCULAR HEMOGLOBIN 28.7 pg (27.0-33.0); MEAN CORPUSCULAR HGB CONC 33.7 g/dl (32.0-36.5); MEAN CORPUSCULAR VOLUME 84.9 fl (80.0-96.0); MONO # 0.6 10^3/uL (0.0-0.8); MONO % 9.8 % (2.0-8.0); NEUTROPHILS # 3.6 10^3/uL (1.5-8.5); NEUTROPHILS % 59.3 % (36.0-66.0); PLATELET COUNT, AUTOMATED 212 10^3/uL (150-450); RED BLOOD COUNT 4.78 10^6/uL (4.30-6.10); WHITE BLOOD COUNT 6.1 10^3/uL (4.0-10.0)
[2022-07-20 11:39] LABS: RSV AMPLIFICATION NEGATIVE (NEGATIVE)
[2022-07-20 11:52] LABS: ACETAMINOPHEN LEVEL < 2.0 UG/ML (10.0-30.0); ALBUMIN 3.6 GM/DL (3.2-5.2); ALT/SGPT 28 U/L (12-78); BILIRUBIN,DIRECT 0.2 MG/DL (0.0-0.2); BILIRUBIN,TOTAL 0.6 MG/DL (0.2-1.0); BLOOD UREA NITROGEN 23 MG/DL (7-18); CALCIUM LEVEL 8.8 MG/DL (8.5-10.1); CARBON DIOXIDE LEVEL 25 MEQ/L (21-32); CHLORIDE LEVEL 107 MEQ/L (98-107); CREATININE FOR GFR 0.94 MG/DL (0.70-1.30); ETHYL ALCOHOL (ETHANOL) < 0.003 % (0.000-0.010); GLOMERULAR FILTRATION RATE > 60.0 (>60); GLUCOSE, FASTING 129 MG/DL (70-100); SALICYLATE LEVEL < 1.7 MG/DL (5.0-30.0); SODIUM LEVEL 139 MEQ/L (136-145); TOTAL PROTEIN 6.6 GM/DL (6.4-8.2)
[2022-07-20 15:09] LABS: AMPHETAMINES LEVEL URINE POSITIVE (NEGATIVE); BARBITURATES URINE NEGATIVE (NEGATIVE); BENZODIAZEPINES URINE POSITIVE (NEGATIVE); CANNABINOIDS URINE NEGATIVE (NEGATIVE); COCAINE METABOLITE URINE NEGATIVE (NEGATIVE); METHADONE URINE NEGATIVE (NEGATIVE); OPIATES URINE NEGATIVE (NEGATIVE); PHENCYCLIDINE URINE NEGATIVE (NEGATIVE)
[2022-07-20] MEDS ORDERED: HOME MED LIST COMPLETE! XX SCH (19:55)
[2022-07-23] MEDS ORDERED: OLANZapine ORAL DISINTEGRATING TAB 5MG PO ONE (10:55)
[2022-07-24] MEDS: traZODone 50 MG TAB PO SCH ×3 (00:08→20:36)
[2022-07-24] MEDS: OLANZapine 5 MG TAB PO SCH ×3 (00:08→20:36)
[2022-07-25] MEDS: NICOTINE 21MG/24HR 1 EA TRANSDERMAL TD SCH (09:00)
[2022-07-25] MEDS: THIAMINE 100 MG TAB PO SCH ×3 (09:00→21:00)
[2022-07-25] MEDS ORDERED: LORazepam 2 MG TAB PO PRN (11:20)
[2022-07-25] MEDS ORDERED: OLANZapine ORAL DISINTEGRATING TAB 5MG PO PRN (11:20)
[2022-07-25] MEDS ORDERED: MOM 30ML SUSPENSION UDC PO PRN (11:20)
[2022-07-25] MEDS ORDERED: MAALOX 30 ML SUSP *UDC PO PRN (11:20)
[2022-07-25 16:53] VITALS: BP 123/73
[2022-07-25] MEDS: FOLIC ACID 1MG TAB PO SCH (19:00)
[2022-07-25] MEDS: MULTIVITAMINS/MINERALS THERAP 1 TAB PO SCH (19:00)
[2022-07-25 23:05] VITALS: BP 128/61
[2022-07-26 07:00] VITALS: BP 128/84
[2022-07-26 07:09] VITALS: BP 128/84
[2022-07-26] MEDS: NICOTINE 21MG/24HR 1 EA TRANSDERMAL TD SCH (09:00)
[2022-07-26] MEDS: MULTIVITAMINS/MINERALS THERAP 1 TAB PO SCH (09:38)
[2022-07-26] MEDS: THIAMINE 100 MG TAB PO SCH ×2 (09:38→20:12)
[2022-07-26] MEDS: FOLIC ACID 1MG TAB PO SCH (09:38)
[2022-07-26 19:24] VITALS: BP 133/79
[2022-07-26] MEDS: traZODone 50 MG TAB PO PRN (20:12)
[2022-07-26] MEDS: OLANZapine 10 MG TAB PO SCH (20:12)
[2022-07-26 21:29] VITALS: BP 130/80
[2022-07-26] MEDS: IBUPROFEN 400MG TAB PO PRN (22:39)
[2022-07-27] MEDS: NICOTINE 21MG/24HR 1 EA TRANSDERMAL TD SCH (09:00)
[2022-07-27] MEDS: FOLIC ACID 1MG TAB PO SCH (09:56)
[2022-07-27] MEDS: IBUPROFEN 400MG TAB PO PRN ×2 (09:56→18:10)
[2022-07-27] MEDS: THIAMINE 100 MG TAB PO SCH ×2 (09:56→21:10)
[2022-07-27] MEDS: MULTIVITAMINS/MINERALS THERAP 1 TAB PO SCH (09:56)
[2022-07-27 17:58] VITALS: BP 120/62
[2022-07-27] MEDS: OLANZapine 10 MG TAB PO SCH (21:10)
[2022-07-27] MEDS: traZODone 50 MG TAB PO PRN (21:10)
[2022-07-28 06:23] VITALS: BP 127/72
[2022-07-28] MEDS: MULTIVITAMINS/MINERALS THERAP 1 TAB PO SCH (07:46)
[2022-07-28] MEDS: IBUPROFEN 400MG TAB PO PRN (07:47)
[2022-07-28] MEDS: THIAMINE 100 MG TAB PO SCH (07:47)
[2022-07-28] MEDS: NICOTINE 21MG/24HR 1 EA TRANSDERMAL TD SCH (07:47)
[2022-07-28] MEDS: FOLIC ACID 1MG TAB PO SCH (07:47)
[2022-07-28] MEDS ORDERED: TRAZ-252 PO (10:32)
[2022-07-28] MEDS ORDERED: OLAN1TAB20 PO (10:32)
[2022-07-28] MEDS ORDERED: FOLI1TAB11 PO (10:32)
[2022-07-28] MEDS ORDERED: VITMTA PO (10:32)
== END 2022-07-28 12:22 | disposition home or self-care (01) | DRG 750 ==
LOC: M ED 10:14 → UNDOADMIN 10:15 → M ED INP 10:15 → M PSY 07-25 16:52
PROVIDERS: ADMIT Psychiatry & Neurology Psychiatry; ATTEND Psychiatry & Neurology Psychiatry
DX: F25.8 Other schizoaffective disorders (principal); F15.90 Other stimulant use, unspecified, uncomplicated; R44.0 Auditory hallucinations; Z88.0 Allergy status to penicillin; F17.210 Nicotine dependence, cigarettes, uncomplicated

== ENCOUNTER 2022-09-02 16:11 | Emergency (ER) | payer OTHER ==
[~2022-09-02 16:11] MED LIST changes: +FOLI1TAB11 PO; +OLAN1TAB20 PO; +VITMTA PO
[2022-09-02 17:10] LABS: HEMATOCRIT 43.6 % (42.0-52.0); HEMOGLOBIN 14.8 g/dl (13.5-17.5); MEAN CORPUSCULAR HEMOGLOBIN 29.8 pg (27.0-33.0); MEAN CORPUSCULAR HGB CONC 33.9 g/dl (32.0-36.5); MEAN CORPUSCULAR VOLUME 87.7 fl (80.0-96.0); PLATELET COUNT, AUTOMATED 209 10^3/uL (150-450); RED BLOOD COUNT 4.97 10^6/uL (4.30-6.10); WHITE BLOOD COUNT 7.8 10^3/uL (4.0-10.0)
[2022-09-02 17:49] LABS: ACETAMINOPHEN LEVEL < 2.0 UG/ML (10.0-30.0); ALBUMIN 3.8 GM/DL (3.2-5.2); ALT/SGPT 53 U/L (12-78); BILIRUBIN,DIRECT 0.1 MG/DL (0.0-0.2); BILIRUBIN,TOTAL 0.5 MG/DL (0.2-1.0); BLOOD UREA NITROGEN 26 MG/DL (7-18); CALCIUM LEVEL 9.3 MG/DL (8.5-10.1); CARBON DIOXIDE LEVEL 29 MEQ/L (21-32); CHLORIDE LEVEL 104 MEQ/L (98-107); CREATININE FOR GFR 1.02 MG/DL (0.70-1.30); ETHYL ALCOHOL (ETHANOL) < 0.003 % (0.000-0.010); GLOMERULAR FILTRATION RATE > 60.0 (>60); GLUCOSE, FASTING 118 MG/DL (70-100); POTASSIUM SERUM 4.2 MEQ/L (3.5-5.1); SALICYLATE LEVEL 2.3 MG/DL (5.0-30.0); SODIUM LEVEL 137 MEQ/L (136-145); TOTAL PROTEIN 7.3 GM/DL (6.4-8.2)
[2022-09-02] MEDS ORDERED: TRAZ-186 PO (20:47)
[2022-09-02] MEDS ORDERED: OLAN1TAB20 PO (20:47)
[2022-09-02] MEDS ORDERED: FOLI1TAB11 PO (20:47)
[2022-09-02] MEDS ORDERED: THERTAB52 PO (20:48)
[2022-09-02] MEDS ORDERED: HOME MED LIST COMPLETE! XX SCH (20:50)
[2022-09-02 23:25] LABS: AMPHETAMINES LEVEL URINE POSITIVE (NEGATIVE); BARBITURATES URINE NEGATIVE (NEGATIVE); BENZODIAZEPINES URINE NEGATIVE (NEGATIVE); CANNABINOIDS URINE POSITIVE (NEGATIVE); COCAINE METABOLITE URINE NEGATIVE (NEGATIVE); METHADONE URINE NEGATIVE (NEGATIVE); OPIATES URINE NEGATIVE (NEGATIVE); PHENCYCLIDINE URINE NEGATIVE (NEGATIVE)
[2022-09-02] MEDS ORDERED: OLANZapine 10 MG TAB PO ONE (23:40)
[2022-09-02] MEDS ORDERED: traZODone 50 MG TAB PO ONE (23:40)
[2022-09-03 20:40] VITALS: BP 142/83
== END 2022-09-04 11:58 | disposition home or self-care (01) ==
LOC: M ED 16:11
DX: F25.9 Schizoaffective disorder, unspecified (principal); F17.200 Nicotine dependence, unspecified, uncomplicated; Z88.0 Allergy status to penicillin; Z79.83 Long term (current) use of bisphosphonates; Z79.899 Other long term (current) drug therapy

== ENCOUNTER 2022-10-24 01:23 | Inpatient (IN) | payer OTHER ==
[~2022-10-24] VITALS: Ht 177.8 cm; Wt 97.1 kg
[~2022-10-24 01:23] MED LIST changes: +THERTAB52 PO; +TRAZ-186 PO
[2022-10-24 03:37] LABS: HEMATOCRIT 43.9 % (42.0-52.0); HEMOGLOBIN 14.5 g/dl (13.5-17.5); MEAN CORPUSCULAR HEMOGLOBIN 29.1 pg (27.0-33.0); PLATELET COUNT, AUTOMATED 228 10^3/uL (150-450); RED BLOOD COUNT 4.99 10^6/uL (4.30-6.10); WHITE BLOOD COUNT 6.3 10^3/uL (4.0-10.0)
[2022-10-24 04:07] LABS: BARBITURATES URINE NEGATIVE (NEGATIVE); BENZODIAZEPINES URINE NEGATIVE (NEGATIVE); CANNABINOIDS URINE NEGATIVE (NEGATIVE); COCAINE METABOLITE URINE NEGATIVE (NEGATIVE); METHADONE URINE NEGATIVE (NEGATIVE); OPIATES URINE NEGATIVE (NEGATIVE); PHENCYCLIDINE URINE NEGATIVE (NEGATIVE)
[2022-10-24 04:09] LABS: AMPHETAMINES LEVEL URINE POSITIVE (NEGATIVE)
[2022-10-24 04:10] LABS: ETHYL ALCOHOL (ETHANOL) 0.004 % (0.000-0.010)
[2022-10-24 04:11] LABS: ACETAMINOPHEN LEVEL < 2.0 UG/ML (10.0-20.0); ALBUMIN 3.8 G/DL (3.2-5.2); ALKALINE PHOSPHATASE 68 U/L (46-116); ALT/SGPT 30 U/L (7.0-40); AST/SGOT 18 U/L (<34); BILIRUBIN,DIRECT < 0.1 MG/DL (<0.4); BILIRUBIN,TOTAL 0.2 MG/DL (0.3-1.2); BLOOD UREA NITROGEN 26 MG/DL (9-23); CARBON DIOXIDE LEVEL 26 MMOL/L (20-31); CHLORIDE LEVEL 103 MMOL/L (98-107); GLOMERULAR FILTRATION RATE > 60.0 (>60); GLUCOSE, FASTING 117 MG/DL (60-100); POTASSIUM SERUM 4.1 MMOL/L (3.5-5.1); SALICYLATE LEVEL < 3.0 MG/DL (<30); SODIUM LEVEL 138 MMOL/L (136-145); TOTAL PROTEIN 6.9 G/DL (5.7-8.2)
[2022-10-24 04:14] LABS: THYROID STIMULATING HORMONE 2.131 uIU/ML (0.55-4.78)
[2022-10-24 04:25] LABS: RSV AMPLIFICATION NEGATIVE (NEGATIVE)
[2022-10-24] MEDS ORDERED: HOME MED LIST COMPLETE! XX SCH (06:00)
[2022-10-24] MEDS ORDERED: hydrOXYzine 50 MG TAB PO PRN (15:30)
[2022-10-24] MEDS ORDERED: ACETAMINOPHEN TAB 650MG DOSE (2X325MG) PO PRN (15:30)
[2022-10-24] MEDS ORDERED: MOM 30ML SUSPENSION UDC PO PRN (15:30)
[2022-10-24] MEDS ORDERED: MAALOX 30 ML SUSP *UDC PO PRN (15:30)
[2022-10-24 17:26] VITALS: BP 115/69
[2022-10-25 06:34] VITALS: BP 106/58
[2022-10-25] MEDS: PALIPERIDONE 6 MG ER TAB (INVEGA) PO SCH (14:18)
[2022-10-25] MEDS: traZODone 50 MG TAB PO PRN (20:19)
[2022-10-26 06:00] VITALS: BP 100/56
[2022-10-26] MEDS: PALIPERIDONE 6 MG ER TAB (INVEGA) PO SCH ×2 (09:00→16:31)
[2022-10-26] MEDS ORDERED: PALI1TAB3 PO (18:06)
[2022-10-26 19:12] VITALS: BP 115/55
[2022-10-26] MEDS: OLANZapine ORAL DISINTEGRATING TAB 5MG PO ONE ×2 (23:43→23:56)
[2022-10-26] MEDS: traZODone 50 MG TAB PO PRN (23:56)
[2022-10-27 06:00] VITALS: BP 104/75
[2022-10-27] MEDS: PALIPERIDONE 6 MG ER TAB (INVEGA) PO SCH (09:24)
== END 2022-10-27 10:05 | disposition home or self-care (01) | DRG 750 ==
LOC: M ED 01:23 → M ED INP 15:27 → M PSY 16:55
PROVIDERS: ADMIT Student in an Organized Health Care Education/Training Program; ATTEND Student in an Organized Health Care Education/Training Program
DX: F25.0 Schizoaffective disorder, bipolar type (principal); F15.950 Other stimulant use, unspecified with stimulant-induced psychotic disorder with delusions; Z20.822 Contact with and (suspected) exposure to COVID-19; G40.909 Epilepsy, unspecified, not intractable, without status epilepticus; F17.200 Nicotine dependence, unspecified, uncomplicated; Z88.0 Allergy status to penicillin; Z91.14 Patient's other noncompliance with medication regimen

== ENCOUNTER 2022-11-11 15:31 | Inpatient (IN) | payer OTHER ==
[~2022-11-11] VITALS: Ht 177.8 cm; Wt 90.9 kg
[~2022-11-11 15:31] MED LIST changes: +PALI1TAB3 PO
[2022-11-11 16:48] LABS: HEMATOCRIT 39.1 % (42.0-52.0); HEMOGLOBIN 13.6 g/dl (13.5-17.5); MEAN CORPUSCULAR HEMOGLOBIN 29.2 pg (27.0-33.0); MEAN CORPUSCULAR HGB CONC 34.8 g/dl (32.0-36.5); MEAN CORPUSCULAR VOLUME 84.1 fl (80.0-96.0); PLATELET COUNT, AUTOMATED 184 10^3/uL (150-450); RED BLOOD COUNT 4.65 10^6/uL (4.30-6.10); WHITE BLOOD COUNT 3.6 10^3/uL (4.0-10.0)
[2022-11-11 17:12] LABS: ETHYL ALCOHOL (ETHANOL) 0.003 % (0.000-0.010)
[2022-11-11 17:13] LABS: ACETAMINOPHEN LEVEL < 2.0 UG/ML (10.0-20.0)
[2022-11-11 17:14] LABS: ALBUMIN 3.8 G/DL (3.2-5.2); ALKALINE PHOSPHATASE 66 U/L (46-116); ALT/SGPT 28 U/L (7.0-40); AST/SGOT 29 U/L (<34); BILIRUBIN,DIRECT 0.2 MG/DL (<0.4); BILIRUBIN,TOTAL 0.6 MG/DL (0.3-1.2); BLOOD UREA NITROGEN 19 MG/DL (9-23); CALCIUM LEVEL 8.7 MG/DL (8.5-10.1); CARBON DIOXIDE LEVEL 23 MMOL/L (20-31); CHLORIDE LEVEL 103 MMOL/L (98-107); CREATININE FOR GFR 0.85 MG/DL (0.70-1.30); GLOMERULAR FILTRATION RATE > 60.0 (>60); GLUCOSE, FASTING 83 MG/DL (60-100); POTASSIUM SERUM 3.6 MMOL/L (3.5-5.1); SALICYLATE LEVEL < 3.0 MG/DL (<30); SODIUM LEVEL 139 MMOL/L (136-145); TOTAL PROTEIN 6.7 G/DL (5.7-8.2)
[2022-11-11 17:16] LABS: THYROID STIMULATING HORMONE 2.381 uIU/ML (0.55-4.78)
[2022-11-11 18:16] LABS: BARBITURATES URINE NEGATIVE (NEGATIVE); COCAINE METABOLITE URINE NEGATIVE (NEGATIVE); METHADONE URINE NEGATIVE (NEGATIVE); OPIATES URINE NEGATIVE (NEGATIVE); PHENCYCLIDINE URINE NEGATIVE (NEGATIVE)
[2022-11-11 18:17] LABS: BENZODIAZEPINES URINE NEGATIVE (NEGATIVE); CANNABINOIDS URINE NEGATIVE (NEGATIVE)
[2022-11-11 18:18] LABS: AMPHETAMINES LEVEL URINE POSITIVE (NEGATIVE)
[2022-11-11] MEDS ORDERED: traZODone 50 MG TAB PO PRN (21:05)
[2022-11-11] MEDS ORDERED: OLANZapine ORAL DISINTEGRATING TAB 5MG PO PRN (21:05)
[2022-11-11] MEDS ORDERED: MOM 30ML SUSPENSION UDC PO PRN (21:05)
[2022-11-11] MEDS ORDERED: ACETAMINOPHEN TAB 650MG DOSE (2X325MG) PO PRN (21:05)
[2022-11-11] MEDS ORDERED: MAALOX 30 ML SUSP *UDC PO PRN (21:05)
[2022-11-11] MEDS ORDERED: PALI1TAB3 PO (21:09)
[2022-11-11] MEDS ORDERED: HOME MED LIST COMPLETE! XX SCH (21:10)
[2022-11-11 21:37] VITALS: BP 127/62
[2022-11-12 17:48] VITALS: BP 112/68
[2022-11-12] MEDS: PALIPERIDONE 3MG ER TAB (INVEGA) PO SCH (21:50)
[2022-11-13 07:02] VITALS: BP 109/62
[2022-11-13 19:00] VITALS: BP 119/56
[2022-11-13] MEDS: PALIPERIDONE 3MG ER TAB (INVEGA) PO SCH (21:27)
[2022-11-14 07:01] VITALS: BP 118/75
[2022-11-14 17:49] VITALS: BP 128/58
[2022-11-14] MEDS: PALIPERIDONE 3MG ER TAB (INVEGA) PO SCH (21:42)
[2022-11-15 06:39] VITALS: BP 119/69
[2022-11-15 18:11] VITALS: BP_SYST 118; BP_SYST 145; BP_DIAS 63; BP_DIAS 65
[2022-11-15] MEDS: PALIPERIDONE 3MG ER TAB (INVEGA) PO SCH (20:56)
[2022-11-16 06:38] VITALS: BP 121/51
[2022-11-16] MEDS ORDERED: PALI1TAB2 PO (08:59)
== END 2022-11-16 10:13 | disposition home or self-care (01) | DRG 750 ==
LOC: M ED 15:31 → M ED INP 21:01 → M PSY 21:33
PROVIDERS: ADMIT Psychiatry & Neurology Psychiatry; ATTEND Psychiatry & Neurology Psychiatry
DX: F25.0 Schizoaffective disorder, bipolar type (principal); U07.1 COVID-19; Z59.01 Sheltered homelessness; F15.151 Other stimulant abuse with stimulant-induced psychotic disorder with hallucinations; Z91.199 Patient's noncompliance with other medical treatment and regimen due to unspecified reason; Z88.0 Allergy status to penicillin

== ENCOUNTER 2023-08-21 21:55 | Inpatient (IN) | payer MEDICAID, OTHER, SELFPAY ==
[~2023-08-21] VITALS: Ht 177.8 cm; Wt 86.3 kg
[~2023-08-21 21:55] MED LIST changes: +PALI1TAB2 PO
[2023-08-21 23:00] LABS: HEMATOCRIT 45.4 % (42.0-52.0); MEAN CORPUSCULAR HEMOGLOBIN 29.1 pg (27.0-33.0); PLATELET COUNT, AUTOMATED 258 10^3/uL (150-450); RED BLOOD COUNT 5.16 10^6/uL (4.30-6.10); WHITE BLOOD COUNT 6.9 10^3/uL (4.0-10.0)
[2023-08-21 23:16] LABS: ETHYL ALCOHOL (ETHANOL) < 0.003 % (0.000-0.010)
[2023-08-21 23:18] LABS: ACETAMINOPHEN LEVEL < 2.0 UG/ML (10.0-20.0); SALICYLATE LEVEL < 3.0 MG/DL (<30)
[2023-08-21 23:19] LABS: ALKALINE PHOSPHATASE 90 U/L (46-116); ALT/SGPT 23 U/L (7.0-40); AST/SGOT 17 U/L (<34); BILIRUBIN,DIRECT 0.2 MG/DL (<0.4); BILIRUBIN,TOTAL 0.6 MG/DL (0.3-1.2); BLOOD UREA NITROGEN 21 MG/DL (9-23); CALCIUM LEVEL 9.3 MG/DL (8.5-10.1); CARBON DIOXIDE LEVEL 29 MMOL/L (20-31); CHLORIDE LEVEL 107 MMOL/L (98-107); CREATININE FOR GFR 0.99 MG/DL (0.70-1.30); GLOMERULAR FILTRATION RATE > 60.0 (>60); GLUCOSE, FASTING 144 MG/DL (60-100); POTASSIUM SERUM 4.3 MMOL/L (3.5-5.1); SODIUM LEVEL 142 MMOL/L (136-145)
[2023-08-21 23:20] LABS: THYROID STIMULATING HORMONE 2.255 uIU/ML (0.55-4.78)
[2023-08-22 01:17] LABS: BARBITURATES URINE NEGATIVE (NEGATIVE); BENZODIAZEPINES URINE NEGATIVE (NEGATIVE); CANNABINOIDS URINE NEGATIVE (NEGATIVE); COCAINE METABOLITE URINE NEGATIVE (NEGATIVE); METHADONE URINE NEGATIVE (NEGATIVE); OPIATES URINE NEGATIVE (NEGATIVE); PHENCYCLIDINE URINE NEGATIVE (NEGATIVE)
[2023-08-22 01:33] LABS: AMPHETAMINES LEVEL URINE POSITIVE (NEGATIVE)
[2023-08-22] MEDS ORDERED: MED REC IN PROGRESS XX SCH (09:55)
[2023-08-22] MEDS ORDERED: MED REC COMMENT (10:14)
[2023-08-22] MEDS ORDERED: HOME MED LIST COMPLETE! XX SCH (10:15)
[2023-08-23] MEDS ORDERED: MOM 30ML SUSPENSION UDC PO PRN (14:10)
[2023-08-23] MEDS ORDERED: diphenhydrAMINE 25MG CAP PO PRN (14:10)
[2023-08-23] MEDS ORDERED: MAALOX 30 ML SUSP *UDC PO PRN (14:10)
[2023-08-23] MEDS ORDERED: IBUPROFEN 400MG TAB PO PRN (14:10)
[2023-08-23] MEDS ORDERED: ACETAMINOPHEN TAB 650MG DOSE (2X325MG) PO PRN (14:10)
[2023-08-23 15:59] VITALS: BP 113/72; TEMP 97.3; O2SAT 97
[2023-08-23] MEDS: traZODone 50 MG TAB PO PRN (20:28)
[2023-08-23] MEDS: LORazepam 1 MG TAB PO PRN (20:28)
[2023-08-24 07:09] VITALS: BP 158/72; TEMP 98.9; O2SAT 98
[2023-08-24] MEDS: LORazepam 1 MG TAB PO PRN (08:37)
[2023-08-24] MEDS: traZODone 50 MG TAB PO PRN (21:19)
[2023-08-24] MEDS: PALIPERIDONE 3MG ER TAB (INVEGA) PO SCH (21:19)
[2023-08-25 06:14] VITALS: BP 114/69; TEMP 98.4; O2SAT 97
[2023-08-25] MEDS: PALIPERIDONE 3MG ER TAB (INVEGA) PO SCH ×3 (10:09→20:26)
[2023-08-25 18:24] VITALS: BP 98/55; TEMP 98.7; O2SAT 97
[2023-08-25] MEDS: traZODone 50 MG TAB PO PRN (20:25)
[2023-08-25] MEDS: LORazepam 1 MG TAB PO PRN (20:26)
[2023-08-26] MEDS: PALIPERIDONE 3MG ER TAB (INVEGA) PO SCH ×2 (10:08→20:36)
[2023-08-26 18:39] VITALS: BP 126/70; TEMP 98; O2SAT 98
[2023-08-26] MEDS: LORazepam 1 MG TAB PO PRN (20:36)
[2023-08-26] MEDS ORDERED: MIRTAZAPINE 15 MG TAB PO SCH (21:00)
[2023-08-27 06:42] VITALS: BP 95/75; TEMP 98.6; O2SAT 99
[2023-08-27] MEDS: PALIPERIDONE 3MG ER TAB (INVEGA) PO SCH (09:00)
[2023-08-27] MEDS ORDERED: PALI1TAB2 PO (10:24)
[2023-08-27] MEDS ORDERED: MIRT-10 PO (10:24)
== END 2023-08-27 12:40 | disposition home or self-care (01) | DRG 750 ==
LOC: M ED 21:55 → M PSY 08-23 16:01
PROVIDERS: ADMIT Student in an Organized Health Care Education/Training Program; ATTEND Student in an Organized Health Care Education/Training Program
DX: F25.0 Schizoaffective disorder, bipolar type (principal); F15.951 Other stimulant use, unspecified with stimulant-induced psychotic disorder with hallucinations; Z56.0 Unemployment, unspecified; Z59.00 Homelessness unspecified; Z88.0 Allergy status to penicillin; Z20.822 Contact with and (suspected) exposure to COVID-19; F17.200 Nicotine dependence, unspecified, uncomplicated; Z86.16 Personal history of COVID-19

== ENCOUNTER 2023-09-11 06:00 | Inpatient (IN) | payer MEDICAID ==
[~2023-09-11] VITALS: Ht 177.8 cm; Wt 93.2 kg
[~2023-09-11 06:00] MED LIST changes: +MED REC COMMENT; +MIRT-10 PO
[2023-09-11] MEDS ORDERED: MIRT-88 PO (06:19)
[2023-09-11] MEDS ORDERED: PALI1TAB2 PO (06:19)
[2023-09-11] MEDS ORDERED: HOME MED LIST COMPLETE! XX SCH (06:25)
[2023-09-11 06:36] LABS: HEMATOCRIT 41.3 % (42.0-52.0); HEMOGLOBIN 14.1 g/dl (13.5-17.5); MEAN CORPUSCULAR HEMOGLOBIN 29.5 pg (27.0-33.0); MEAN CORPUSCULAR HGB CONC 34.1 g/dl (32.0-36.5); MEAN CORPUSCULAR VOLUME 86.4 fl (80.0-96.0); PLATELET COUNT, AUTOMATED 215 10^3/uL (150-450); RED BLOOD COUNT 4.78 10^6/uL (4.30-6.10); WHITE BLOOD COUNT 6.9 10^3/uL (4.0-10.0)
[2023-09-11 07:08] LABS: BARBITURATES URINE NEGATIVE (NEGATIVE); BENZODIAZEPINES URINE NEGATIVE (NEGATIVE); METHADONE URINE NEGATIVE (NEGATIVE); OPIATES URINE NEGATIVE (NEGATIVE); PHENCYCLIDINE URINE NEGATIVE (NEGATIVE)
[2023-09-11 07:10] LABS: ETHYL ALCOHOL (ETHANOL) < 0.003 % (0.000-0.010)
[2023-09-11 07:12] LABS: ALBUMIN 3.8 G/DL (3.2-5.2); ALKALINE PHOSPHATASE 87 U/L (46-116); ALT/SGPT 22 U/L (7.0-40); AST/SGOT 18 U/L (<34); BILIRUBIN,DIRECT 0.2 MG/DL (<0.4); BILIRUBIN,TOTAL 0.6 MG/DL (0.3-1.2); BLOOD UREA NITROGEN 11 MG/DL (9-23); CALCIUM LEVEL 8.8 MG/DL (8.5-10.1); CARBON DIOXIDE LEVEL 27 MMOL/L (20-31); CHLORIDE LEVEL 105 MMOL/L (98-107); CREATININE FOR GFR 0.82 MG/DL (0.70-1.30); GLOMERULAR FILTRATION RATE > 60.0 (>60); GLUCOSE, FASTING 101 MG/DL (60-100); POTASSIUM SERUM 4.5 MMOL/L (3.5-5.1); SALICYLATE LEVEL < 3.0 MG/DL (<30); SODIUM LEVEL 140 MMOL/L (136-145); TOTAL PROTEIN 6.9 G/DL (5.7-8.2)
[2023-09-11 07:14] LABS: THYROID STIMULATING HORMONE 2.374 uIU/ML (0.55-4.78)
[2023-09-11 07:18] LABS: AMPHETAMINES LEVEL URINE POSITIVE (NEGATIVE); CANNABINOIDS URINE POSITIVE (NEGATIVE); COCAINE METABOLITE URINE POSITIVE (NEGATIVE)
[2023-09-11] MEDS ORDERED: MAALOX 30 ML SUSP *UDC PO PRN (18:45)
[2023-09-11] MEDS ORDERED: MOM 30ML SUSPENSION UDC PO PRN (18:45)
[2023-09-11] MEDS ORDERED: IBUPROFEN 400MG TAB PO PRN (18:45)
[2023-09-11] MEDS ORDERED: OLANZapine ORAL DISINTEGRATING TAB 5MG PO PRN (18:45)
[2023-09-11] MEDS ORDERED: ACETAMINOPHEN TAB 650MG DOSE (2X325MG) PO PRN (18:45)
[2023-09-11] MEDS ORDERED: traZODone 50 MG TAB PO PRN (18:45)
[2023-09-11] MEDS ORDERED: diphenhydrAMINE 25MG CAP PO PRN (18:45)
[2023-09-11 21:48] VITALS: BP 137/70; TEMP 98; O2SAT 98
[2023-09-12 06:48] VITALS: BP 112/71; TEMP 98.8; O2SAT 98
[2023-09-12] MEDS: PALIPERIDONE 3MG ER TAB (INVEGA) PO SCH ×2 (12:37→20:40)
[2023-09-12 16:31] VITALS: BP 120/60; TEMP 98.2; O2SAT 100
[2023-09-12] MEDS: MIRTAZAPINE 15 MG TAB PO SCH (20:40)
[2023-09-13 06:04] VITALS: BP 109/55; TEMP 98.1; O2SAT 100
[2023-09-13] MEDS: PALIPERIDONE 3MG ER TAB (INVEGA) PO SCH ×2 (10:40→20:08)
[2023-09-13] MEDS: MIRTAZAPINE 15 MG TAB PO SCH (20:09)
[2023-09-14 06:08] VITALS: BP 113/63; TEMP 98.3; O2SAT 97
[2023-09-14] MEDS: PALIPERIDONE 3MG ER TAB (INVEGA) PO SCH ×2 (09:47→20:19)
[2023-09-14 16:47] VITALS: BP 120/60; TEMP 98.7; O2SAT 97
[2023-09-14] MEDS: MIRTAZAPINE 15 MG TAB PO SCH (20:19)
[2023-09-15 06:59] VITALS: BP 115/70; TEMP 98.7; O2SAT 96
[2023-09-15] MEDS: PALIPERIDONE 6MG ER TAB (INVEGA) PO SCH ×2 (09:56→20:23)
[2023-09-15 16:26] VITALS: BP 117/56; TEMP 98.8; O2SAT 97
[2023-09-15] MEDS: MIRTAZAPINE 15 MG TAB PO SCH (20:23)
[2023-09-16 07:11] VITALS: BP 130/66; TEMP 98.8; O2SAT 97
[2023-09-16] MEDS: PALIPERIDONE 6MG ER TAB (INVEGA) PO SCH ×2 (09:22→21:45)
[2023-09-16 16:10] VITALS: BP 150/78; TEMP 98; O2SAT 100
[2023-09-16] MEDS: MIRTAZAPINE 15 MG TAB PO SCH (21:45)
[2023-09-17 06:57] VITALS: BP 123/66; TEMP 98.2; O2SAT 96
[2023-09-17] MEDS: PALIPERIDONE 6MG ER TAB (INVEGA) PO SCH ×2 (09:40→20:14)
[2023-09-17 16:20] VITALS: BP 131/77; TEMP 98.6; O2SAT 95
[2023-09-17] MEDS ORDERED: NICOTINE POLACRILEX 2 MG GUM PO PRN (16:30)
[2023-09-17] MEDS ORDERED: NICO2GUM PO (18:22)
[2023-09-17] MEDS ORDERED: MIRT-88 PO (18:22)
[2023-09-17] MEDS ORDERED: PALI1TAB3 PO (18:22)
[2023-09-17] MEDS: MIRTAZAPINE 15 MG TAB PO SCH (20:14)
[2023-09-18 06:17] VITALS: BP 104/56; TEMP 97.6; O2SAT 100
[2023-09-18] MEDS: PALIPERIDONE 6MG ER TAB (INVEGA) PO SCH (09:27)
== END 2023-09-18 09:57 | disposition home or self-care (01) | DRG 751 ==
LOC: M ED 06:00 → M ED INP 18:43 → M PSY 21:38
PROVIDERS: ADMIT Student in an Organized Health Care Education/Training Program; ATTEND Student in an Organized Health Care Education/Training Program
DX: F29 Unspecified psychosis not due to a substance or known physiological condition (principal); Z91.119 Patient's noncompliance with dietary regimen due to unspecified reason; F12.90 Cannabis use, unspecified, uncomplicated; F14.90 Cocaine use, unspecified, uncomplicated; F15.950 Other stimulant use, unspecified with stimulant-induced psychotic disorder with delusions; Z88.0 Allergy status to penicillin; Z91.128 Patient's intentional underdosing of medication regimen for other reason; Z59.00 Homelessness unspecified; F25.0 Schizoaffective disorder, bipolar type

== ENCOUNTER 2023-11-03 19:04 | Inpatient (IN) | payer MEDICAID, OTHER ==
[~2023-11-03] VITALS: Ht 177.8 cm; Wt 100.0 kg
[~2023-11-03 19:04] MED LIST changes: +MIRT-88 PO; +NICO2GUM PO
[2023-11-03] MEDS ORDERED: LORazepam 2 MG/ML 1ML VIAL IM ONE (19:20)
[2023-11-03] MEDS ORDERED: OLANZapine INTRAMUSCULAR 10MG VIAL IM ONE (19:20)
[2023-11-03] MEDS ORDERED: LORazepam 2 MG/ML 1ML VIAL As Ordered ONE (19:25)
[2023-11-03 20:02] LABS: HEMATOCRIT 41.2 % (42.0-52.0); MEAN CORPUSCULAR HEMOGLOBIN 29.3 pg (27.0-33.0); MEAN CORPUSCULAR VOLUME 86.2 fl (80.0-96.0); PLATELET COUNT, AUTOMATED 233 10^3/uL (150-450); RED BLOOD COUNT 4.78 10^6/uL (4.30-6.10)
[2023-11-03 20:25] LABS: ETHYL ALCOHOL (ETHANOL) < 0.003 % (0.000-0.010)
[2023-11-03 20:26] LABS: ALKALINE PHOSPHATASE 83 U/L (46-116); ALT/SGPT 39 U/L (7.0-40); AST/SGOT 43 U/L (<34); BILIRUBIN,DIRECT 0.3 MG/DL (<0.4); BILIRUBIN,TOTAL 0.9 MG/DL (0.3-1.2); BLOOD UREA NITROGEN 17 MG/DL (9-23); CALCIUM LEVEL 8.9 MG/DL (8.5-10.1); CARBON DIOXIDE LEVEL 26 MMOL/L (20-31); CHLORIDE LEVEL 105 MMOL/L (98-107); CREATININE FOR GFR 1.01 MG/DL (0.70-1.30); GLOMERULAR FILTRATION RATE > 60.0 (>60); GLUCOSE, FASTING 109 MG/DL (60-100); POTASSIUM SERUM 3.8 MMOL/L (3.5-5.1); SALICYLATE LEVEL < 3.0 MG/DL (<30); SODIUM LEVEL 140 MMOL/L (136-145); TOTAL PROTEIN 7.1 G/DL (5.7-8.2)
[2023-11-03 20:38] LABS: RSV AMPLIFICATION NEGATIVE (NEGATIVE)
[2023-11-03] MEDS ORDERED: LORazepam 2 MG/ML 1ML VIAL IM STA ×2 (20:53→23:19)
[2023-11-03] MEDS ORDERED: MIRT-10 PO (22:01)
[2023-11-03] MEDS ORDERED: PALI1TAB3 PO (22:01)
[2023-11-03] MEDS ORDERED: HOME MED LIST COMPLETE! XX SCH (22:05)
[2023-11-04] MEDS ORDERED: LORazepam 1 MG TAB PO ONE (12:35)
[2023-11-04] MEDS ORDERED: OLANZapine ORAL DISINTEGRATING TAB 5MG PO ONE (12:35)
[2023-11-04] MEDS ORDERED: MOM 30ML SUSPENSION UDC PO PRN (13:20)
[2023-11-04] MEDS ORDERED: ACETAMINOPHEN TAB 650MG DOSE (2X325MG) PO PRN (13:20)
[2023-11-04] MEDS ORDERED: IBUPROFEN 400MG TAB PO PRN (13:20)
[2023-11-04] MEDS ORDERED: traZODone 50 MG TAB PO PRN (13:20)
[2023-11-04] MEDS ORDERED: MAALOX 30 ML SUSP *UDC PO PRN (13:20)
[2023-11-04] MEDS ORDERED: OLANZapine 5 MG TAB PO PRN (13:20)
[2023-11-04] MEDS ORDERED: diphenhydrAMINE 25MG CAP PO PRN (13:20)
[2023-11-04 14:00] LABS: BARBITURATES URINE NEGATIVE (NEGATIVE); BENZODIAZEPINES URINE NEGATIVE (NEGATIVE); METHADONE URINE NEGATIVE (NEGATIVE); OPIATES URINE NEGATIVE (NEGATIVE); PHENCYCLIDINE URINE NEGATIVE (NEGATIVE)
[2023-11-04 14:01] LABS: AMPHETAMINES LEVEL URINE POSITIVE (NEGATIVE); CANNABINOIDS URINE POSITIVE (NEGATIVE); COCAINE METABOLITE URINE POSITIVE (NEGATIVE)
[2023-11-05] MEDS: PALIPERIDONE 3MG ER TAB (INVEGA) PO SCH ×2 (11:57→21:48)
[2023-11-06 06:36] VITALS: BP 115/66; TEMP 99.2; O2SAT 98
[2023-11-06] MEDS: PALIPERIDONE 3MG ER TAB (INVEGA) PO SCH ×2 (09:00→20:46)
[2023-11-06 17:38] VITALS: BP 118/61; TEMP 99; O2SAT 99
[2023-11-07 06:33] VITALS: BP 124/59; TEMP 98.4; O2SAT 97
[2023-11-07] MEDS: PALIPERIDONE 3MG ER TAB (INVEGA) PO SCH ×2 (09:37→20:35)
[2023-11-07 15:48] VITALS: BP 128/58; TEMP 98.3; O2SAT 98
[2023-11-08] MEDS: PALIPERIDONE 3MG ER TAB (INVEGA) PO SCH (08:30)
[2023-11-08] MEDS ORDERED: PALI1TAB2 PO ×2 (09:59)
== END 2023-11-08 10:22 | disposition home or self-care (01) | DRG 751 ==
LOC: M ED 19:04 → M PSY 11-04 14:58
PROVIDERS: ADMIT Student in an Organized Health Care Education/Training Program; ATTEND Student in an Organized Health Care Education/Training Program
DX: F29 Unspecified psychosis not due to a substance or known physiological condition (principal); F25.0 Schizoaffective disorder, bipolar type; F12.90 Cannabis use, unspecified, uncomplicated; F15.90 Other stimulant use, unspecified, uncomplicated; F14.90 Cocaine use, unspecified, uncomplicated; Z78.1 Physical restraint status; Z83.3 Family history of diabetes mellitus; F17.200 Nicotine dependence, unspecified, uncomplicated; Z79.899 Other long term (current) drug therapy; Z20.822 Contact with and (suspected) exposure to COVID-19; Z88.0 Allergy status to penicillin

== ENCOUNTER 2024-02-06 04:13 | Inpatient (IN) | payer MEDICAID, OTHER ==
[~2024-02-06] VITALS: Ht 177.8 cm; Wt 81.8 kg
[~2024-02-06 04:13] MED LIST changes: +RISP-105 PO; -RISP-8 PO
[2024-02-06] MEDS: diphenhydrAMINE 50MG/ML VIAL IM ONE (04:31)
[2024-02-06] MEDS: LORazepam 2 MG/ML 1ML VIAL IM ONE (04:31)
[2024-02-06] MEDS: HALOPERIDOL 5MG/ML 1ML VIAL IM ONE (04:31)
[2024-02-06 05:38] LABS: HEMATOCRIT 37.9 % (42.0-52.0); HEMOGLOBIN 13.1 g/dl (13.5-17.5); MEAN CORPUSCULAR HEMOGLOBIN 29.4 pg (27.0-33.0); MEAN CORPUSCULAR HGB CONC 34.6 g/dl (32.0-36.5); MEAN CORPUSCULAR VOLUME 85.2 fl (80.0-96.0); PLATELET COUNT, AUTOMATED 197 10^3/uL (150-450); RED BLOOD COUNT 4.45 10^6/uL (4.30-6.10); WHITE BLOOD COUNT 5.4 10^3/uL (4.0-10.0)
[2024-02-06 06:03] LABS: ETHYL ALCOHOL (ETHANOL) 0.005 % (0.000-0.010)
[2024-02-06 06:05] LABS: ALBUMIN 3.6 G/DL (3.2-5.2); ALKALINE PHOSPHATASE 72 U/L (46-116); ALT/SGPT 33 U/L (7.0-40); AST/SGOT 42 U/L (<34); BILIRUBIN,DIRECT 0.2 MG/DL (<0.4); BILIRUBIN,TOTAL 0.7 MG/DL (0.3-1.2); BLOOD UREA NITROGEN 21 MG/DL (9-23); CALCIUM LEVEL 8.3 MG/DL (8.5-10.1); CARBON DIOXIDE LEVEL 23 MMOL/L (20-31); CHLORIDE LEVEL 107 MMOL/L (98-107); CREATININE FOR GFR 0.85 MG/DL (0.70-1.30); GLOMERULAR FILTRATION RATE > 60.0 (>60); GLUCOSE, FASTING 100 MG/DL (60-100); POTASSIUM SERUM 3.6 MMOL/L (3.5-5.1); SALICYLATE LEVEL < 3.0 MG/DL (<30); SODIUM LEVEL 138 MMOL/L (136-145); TOTAL PROTEIN 6.1 G/DL (5.7-8.2)
[2024-02-06 06:07] LABS: THYROID STIMULATING HORMONE 2.601 uIU/ML (0.55-4.78)
[2024-02-06] MEDS ORDERED: MED REC CURRENTLY UNOBTAINABLE XX SCH (12:45)
[2024-02-06 13:19] LABS: COCAINE METABOLITE URINE NEGATIVE (NEGATIVE)
[2024-02-06 13:20] LABS: BARBITURATES URINE NEGATIVE (NEGATIVE); BENZODIAZEPINES URINE NEGATIVE (NEGATIVE); METHADONE URINE NEGATIVE (NEGATIVE); OPIATES URINE NEGATIVE (NEGATIVE); PHENCYCLIDINE URINE NEGATIVE (NEGATIVE)
[2024-02-06 13:22] LABS: AMPHETAMINES LEVEL URINE POSITIVE (NEGATIVE); CANNABINOIDS URINE POSITIVE (NEGATIVE)
[2024-02-06] MEDS ORDERED: HOME MED LIST COMPLETE! XX SCH (17:25)
[2024-02-08] MEDS ORDERED: ACETAMINOPHEN TAB 650MG DOSE (2X325MG) PO PRN (17:05)
[2024-02-08] MEDS ORDERED: NICOTINE 21MG/24HR 1 EA TRANSDERMAL TD PRN (17:05)
[2024-02-08] MEDS ORDERED: MAALOX 30 ML SUSP *UDC PO PRN (17:05)
[2024-02-08] MEDS ORDERED: MOM 30ML SUSPENSION UDC PO PRN (17:05)
[2024-02-08] MEDS ORDERED: IBUPROFEN 400MG TAB PO PRN (17:05)
[2024-02-08] MEDS ORDERED: OLANZapine ORAL DISINTEGRATING TAB 5MG PO PRN (17:05)
[2024-02-08 18:36] VITALS: BP 132/61; TEMP 97.3; O2SAT 98
[2024-02-10 15:59] VITALS: BP 124/66; TEMP 97.7; O2SAT 99
[2024-02-10] MEDS: diphenhydrAMINE 25MG CAP PO PRN (20:22)
[2024-02-10] MEDS: traZODone 50 MG TAB PO PRN (20:23)
[2024-02-11 06:35] VITALS: BP 168/92; TEMP 98.5; O2SAT 96
== END 2024-02-11 13:20 | disposition home or self-care (01) | DRG 751 ==
LOC: M ED 04:13 → M ED INP 02-08 17:06 → M PSY 02-08 18:31
PROVIDERS: ADMIT Student in an Organized Health Care Education/Training Program; ATTEND Student in an Organized Health Care Education/Training Program
DX: F29 Unspecified psychosis not due to a substance or known physiological condition (principal); F25.9 Schizoaffective disorder, unspecified; Z91.119 Patient's noncompliance with dietary regimen due to unspecified reason; F14.90 Cocaine use, unspecified, uncomplicated; F15.90 Other stimulant use, unspecified, uncomplicated; F12.90 Cannabis use, unspecified, uncomplicated; Z88.0 Allergy status to penicillin; F17.200 Nicotine dependence, unspecified, uncomplicated

== ENCOUNTER 2024-02-19 00:43 | Inpatient (IN) | payer MEDICAID, OTHER ==
[~2024-02-19] VITALS: Ht 177.8 cm; Wt 94.3 kg
[2024-02-19 01:33] LABS: HEMATOCRIT 39.3 % (42.0-52.0); HEMOGLOBIN 13.3 g/dl (13.5-17.5); MEAN CORPUSCULAR HEMOGLOBIN 29.6 pg (27.0-33.0); MEAN CORPUSCULAR HGB CONC 33.8 g/dl (32.0-36.5); MEAN CORPUSCULAR VOLUME 87.5 fl (80.0-96.0); PLATELET COUNT, AUTOMATED 233 10^3/uL (150-450); RED BLOOD COUNT 4.49 10^6/uL (4.30-6.10); WHITE BLOOD COUNT 5.9 10^3/uL (4.0-10.0)
[2024-02-19 01:46] LABS: ETHYL ALCOHOL (ETHANOL) 0.003 % (0.000-0.010)
[2024-02-19 01:48] LABS: ALBUMIN 3.8 G/DL (3.2-5.2); ALKALINE PHOSPHATASE 73 U/L (46-116); ALT/SGPT 39 U/L (7.0-40); AST/SGOT 39 U/L (<34); BILIRUBIN,DIRECT 0.2 MG/DL (<0.4); BILIRUBIN,TOTAL 0.5 MG/DL (0.3-1.2); BLOOD UREA NITROGEN 31 MG/DL (9-23); CALCIUM LEVEL 9.2 MG/DL (8.5-10.1); CARBON DIOXIDE LEVEL 28 MMOL/L (20-31); CHLORIDE LEVEL 109 MMOL/L (98-107); CREATININE FOR GFR 1.15 MG/DL (0.70-1.30); GLOMERULAR FILTRATION RATE > 60.0 (>60); GLUCOSE, FASTING 116 MG/DL (60-100); POTASSIUM SERUM 3.8 MMOL/L (3.5-5.1); SALICYLATE LEVEL < 3.0 MG/DL (<30); SODIUM LEVEL 141 MMOL/L (136-145); TOTAL PROTEIN 6.6 G/DL (5.7-8.2)
[2024-02-19 01:50] LABS: THYROID STIMULATING HORMONE 3.153 uIU/ML (0.55-4.78)
[2024-02-19] MEDS: LORazepam 2 MG/ML 1ML VIAL IM STA (02:10)
[2024-02-19] MEDS ORDERED: HOME MED LIST COMPLETE! XX SCH (02:35)
[2024-02-19 09:03] LABS: BARBITURATES URINE NEGATIVE (NEGATIVE); COCAINE METABOLITE URINE NEGATIVE (NEGATIVE); METHADONE URINE NEGATIVE (NEGATIVE); OPIATES URINE NEGATIVE (NEGATIVE); PHENCYCLIDINE URINE NEGATIVE (NEGATIVE)
[2024-02-19 09:04] LABS: BENZODIAZEPINES URINE NEGATIVE (NEGATIVE)
[2024-02-19 09:09] LABS: AMPHETAMINES LEVEL URINE POSITIVE (NEGATIVE); CANNABINOIDS URINE POSITIVE (NEGATIVE)
[2024-02-19] MEDS: LORazepam 2 MG TAB PO STA (10:17)
[2024-02-19] MEDS ORDERED: diphenhydrAMINE 50MG/ML VIAL IM ONE (10:45)
[2024-02-19] MEDS ORDERED: HALOPERIDOL 5MG/ML 1ML VIAL IM ONE (10:45)
[2024-02-19] MEDS ORDERED: LORazepam 2 MG/ML 1ML VIAL IM ONE (10:45)
[2024-02-19] MEDS: LORazepam 2 MG TAB PO ONE (11:04)
[2024-02-20] MEDS ORDERED: MAALOX 30 ML SUSP *UDC PO PRN (08:10)
[2024-02-20] MEDS ORDERED: OLANZapine ORAL DISINTEGRATING TAB 5MG PO PRN (08:10)
[2024-02-20] MEDS ORDERED: ACETAMINOPHEN TAB 650MG DOSE (2X325MG) PO PRN (08:10)
[2024-02-20] MEDS ORDERED: MOM 30ML SUSPENSION UDC PO PRN (08:10)
[2024-02-20] MEDS ORDERED: IBUPROFEN 400MG TAB PO PRN (08:10)
[2024-02-20 14:55] VITALS: BP 124/93; TEMP 97.6; O2SAT 99
[2024-02-21 17:03] VITALS: BP 125/64; TEMP 97.5; O2SAT 97
[2024-02-21] MEDS: PALIPERIDONE 3MG ER TAB (INVEGA) PO SCH (21:00)
[2024-02-22] MEDS: PALIPERIDONE 3MG ER TAB (INVEGA) PO SCH (09:00)
[2024-02-22 16:28] VITALS: BP 127/68; TEMP 97.6; O2SAT 99
[2024-02-23] MEDS: traZODone 50 MG TAB PO PRN (19:58)
[2024-02-25 17:53] VITALS: BP 113/63; TEMP 97.4
[2024-02-25] MEDS: diphenhydrAMINE 25MG CAP PO PRN (21:17)
== END 2024-02-26 11:56 | disposition home or self-care (01) | DRG 751 ==
LOC: M ED 00:43 → M ED INP 02-20 08:10 → M PSY 02-20 15:18
PROVIDERS: ADMIT Student in an Organized Health Care Education/Training Program; ATTEND Student in an Organized Health Care Education/Training Program
DX: F29 Unspecified psychosis not due to a substance or known physiological condition (principal); F25.9 Schizoaffective disorder, unspecified; Z91.119 Patient's noncompliance with dietary regimen due to unspecified reason; F14.90 Cocaine use, unspecified, uncomplicated; F12.90 Cannabis use, unspecified, uncomplicated; F15.90 Other stimulant use, unspecified, uncomplicated; Z88.0 Allergy status to penicillin